=== PATIENT | female | born 1945 | race Caucasian/White ===

== ENCOUNTER → 2016-12-19 | Outpatient (CLI) | payer MEDICARE ==
[2016-12-19 09:00] LABS: Blood Urea Nitrogen 15 mg/dL (7-17); Non-African American GFR(MDRD) >60 (>60 ml/min/1.73 sqM)
--- NOTE | 2016-12-19 10:42 | CT ---
EXAMINATION TYPE: CT abdomen pelvis w con DATE OF EXAM: 12/19/2016 10:32 AM HISTORY: Constipation CT DLP: 412.80mGycm Automated Exposure Control for Dose Reduction was Utilized. CONTRAST: CT scan of the abdomen and pelvis is performed with IV Contrast, patient injected with 100 ml mL of O mnipaque 300. COMPARISON: CT abdomen and pelvis November 30, 2014 FINDINGS: LUNG BASES: There is 7 mm pleural based nodular opacity anterior medially right middle lobe on axial image 1 not clearly seen on [address], consider follow-up. LIVER/GB: No significant abnormality is appreciated. PANCREAS: No significant abnormality is seen. SPLEEN: No significant abnormality is seen. ADRENALS: Stable thickening to left adrenal gland may reflect hyperplasia. KIDNEYS: Bladder is distended extending into the lower abdomen. A few scattered pelvic phleboliths ar e seen. BOWEL: Evaluation bowel is slightly suboptimal as there is incomplete opacification of proximal small bowel loops and oral contrast only reaches distal transverse colon level. There is no suspicious sma ll or large bowel dilatation seen. There is some prominence of fecal material in the right, transvers e, and left colon. There is less fecal prominence in the sigmoid colon and rectum. UTERUS/ADNEXA: No gross abnormality seen. LYMPH NODES: No greater than 1cm abdominal or pelvic lymph nodes are appreciated. OSSEOUS STRUCTURES: There is grade 1 anterolisthesis of L3 on L4. There is moderate to advanced disc space narrowing with vacuum disc phenomenon and spurring at L4-L5 and L5-S1 levels. There is multilev el facet arthropathy in the lower lumbar spine. OTHER: There is mild to moderate calcified atherotic change of aorta and branch vessels. IMPRESSION: 1. Overall nonobstructive bowel gas pattern. Fairly moderate diffuse colonic fecal stasis is confirme d, correlates with history of constipation. 2. Suspicious 7 mm pleural-based nodular opacity only partially imaged on axial image 1, advise follo w-up chest CT to further evaluate this area and assess for possible additional pulmonary nodules.
== END | disposition home or self-care (01) ==
LOC: RADCTMAIN 08:05
PROVIDERS: ATTEND Family Medicine
DX: K59.00 Constipation, unspecified (principal)
CPT/HCPCS: 82565; 84520; 74177; 36415; Q9967

== ENCOUNTER → 2016-12-25 | Outpatient (CLI) | payer MEDICARE ==
[2016-12-25 08:23] LABS: Basophils % (A) 1 %; CH 30.9; CHCM 33.5; Eosinophils % (A) 1 %; HDW 2.49; HGB 14.3 gm/dL (11.4-16.0); Luc # (Auto) 0.13; Luc % (Auto) 3; Lymphocytes % (A) 24 %; MCHC 32.4 g/dL (31.0-37.0); MCV 92.6 fL (80.0-100.0); Mean Platelet Volume 6.9; Monocytes # (A) 0.2 k/uL (0-1.0); Monocytes % (A) 6 %; Neutrophils # (A) 2.7 k/uL (1.3-7.7); Neutrophils % (A) 65 %; RBC 4.75 m/uL (3.80-5.40); RDW 12.6 % (11.5-15.5); WBC 4.1 k/uL (3.8-10.6); WBC (Perox) 4.15
[2016-12-25 10:51] LABS: Erythrocyte Sedimentation Rate 14 mm/hr (0-20)
[2016-12-25 15:36] LABS: ALT 24 U/L (9-52); AST 27 U/L (14-36); Alkaline Phosphatase 61 U/L (38-126); Anion Gap 10 mmol/L; Blood Urea Nitrogen 17 mg/dL (7-17); C Reactive Protein <5.0 mg/L (<10.0); Calcium 9.3 mg/dL (8.4-10.2); Carbon Dioxide 29 mmol/L (22-30); Chloride 104 mmol/L (98-107); Cholesterol 211 mg/dL (<200); Glucose 97 mg/dL (74-99); HDL Cholesterol 69 mg/dL (40-60); Non-African American GFR(MDRD) >60 (>60 ml/min/1.73 sqM); Potassium 4.4 mmol/L (3.5-5.1); Sodium 143 mmol/L (137-145); Total Bilirubin 0.6 mg/dL (0.2-1.3); Total Protein 7.8 g/dL (6.3-8.2); Triglycerides 90 mg/dL (<150)
[2016-12-25 20:03] LABS: Magnesium 2.1 mg/dL (1.6-2.3)
== END | disposition home or self-care (01) ==
LOC: LABWHC1 07:39
PROVIDERS: ATTEND Family Medicine
DX: I10 Essential (primary) hypertension (principal); M31.6 Other giant cell arteritis; E78.5 Hyperlipidemia, unspecified
CPT/HCPCS: 36415; 80053; 80061; 83735; 84443; 85025; 85652; 86140

== ENCOUNTER → 2016-12-26 | Outpatient (CLI) | payer MEDICARE ==
--- NOTE | 2016-12-26 08:08 | CT ---
EXAMINATION TYPE: CT chest w con DATE OF EXAM: 12/26/2016 7:39 AM COMPARISON: 06/05/2006, 12/19/2016 HISTORY: Patient has no complaints at time of study. Follow up study for recently found lung nodule. CT DLP: 476 mGycm Automated exposure control for dose reduction was used. CONTRAST: CT scan of the chest is performed with IV Contrast, patient injected with 100 mL of Omnipaque 300. FINDINGS: LUNGS: Apical pleural-based thickening noted. Subpleural nodularity measuring 5 mm noted bilaterally. Nodular density seen by recent CT scan within the right middle lobe appears to correspond to areas o f subsegmental consolidation and scar or atelectasis. No spiculated masses. No pleural effusion, pneumothorax or focal pneumonia. MEDIASTINUM: There are no greater than 1 cm hilar or mediastinal lymph nodes. No pericardial effusi on is seen. OTHER: Hypertrophic change of the spine. IMPRESSION: 1. Area of abnormality seen within the right middle lobe most typical of postinflammatory change. Six -month follow-up recommended for confirmation. 2. There are numerous subpleural less than 5 mm pulmonary nodules too small to characterize but likel y postinflammatory. Six-month follow-up recommended to confirm stability.
== END ==
LOC: RADCTMAIN 07:13
PROVIDERS: ATTEND Family Medicine
DX: R91.1 Solitary pulmonary nodule (principal)
CPT/HCPCS: 71260; Q9967

== ENCOUNTER → 2017-01-06 | Outpatient (CLI) | payer MEDICARE ==
--- NOTE | 2017-01-07 08:43 | MM ---
Reason for exam: screening (asymptomatic). Last mammogram was performed 1 year ago. History: Patient is postmenopausal and has history of other cancer at age 33. Physical Findings: A clinical breast exam by your physician is recommended on an annual basis and results should be correlated with mammographic findings. MG 3D Screening Mammo W/Cad Bilateral CC and MLO view(s) were taken. Prior study comparison: December 26, 2015, bilateral MG 3d screening mammo w/cad. December 15, 2014, left breast MG work up mamm w CAD LT. December 06, 2014, bilateral MG screening mammo w CAD. There are scattered fibroglandular densities. Finding: There are typically benign round, grouped/clustered calcifications in the right breast. There is no discrete abnormality. ASSESSMENT: Benign, BI-RAD 2 RECOMMENDATION: Routine screening mammogram of both breasts in 1 year.
== END | disposition home or self-care (01) ==
LOC: RADMAMWWP 10:04
PROVIDERS: ATTEND Family Medicine
DX: Z12.31 Encounter for screening mammogram for malignant neoplasm of breast (principal)
CPT/HCPCS: 77063; G0202

== ENCOUNTER → 2017-02-20 | Outpatient (CLI) | payer MEDICARE ==
--- NOTE | 2017-02-20 20:35 | BD ---
EXAMINATION TYPE: MG DEXA axial skeleton. DATE OF EXAM: 02/20/2017 8:55 AM COMPARISON: NONE CLINICAL HISTORY: 71-year-old female screening for osteoporosis Height: 63 Weight: 129.2 FRAX RISK QUESTIONS: Alcohol (3 or more units per day): NO Family History (Parent hip fracture): NO Glucocorticoids (More than 3mos): NO (Ex: prednisone, prednisolone, methylprednisolone, dexamethasone, and hydrocortisone). History of Fracture in Adulthood: NO Secondary Osteoporosis: 1. Type 1 Diabetes: NO 2. Hyperthyroidism: NO 3. Menopause before 45: NO 4. Malnutrition: NO 5. Chronic liver disease: NO Rheumatoid Arthritis: NO Current Tobacco Use: NO RISK FACTORS HISTORY OF: Hip Fracture (Right/Left): NO Spine Fracture: NO History of Wrist Fracture: NO Surgery to Spine/Hip(right/left)/Wrist (right/left): NO Family History of Osteoporosis: NO Active: YES Diet low in dairy products/other sources of calcium: YES Postmenopausal woman: AGE 52 Lost more than 2 inches in height since high school: NO Frequent falls: NO Poor Health: NO Adrenal Insufficiency: NO MEDICATIONS: COZAAR, PRAVASTATIN, COLACE EXAM MEASUREMENTS: Bone mineral densitometry was performed using the Mam[employer] Shkola System. Bone mineral density as measured about the Lumbar spine is: ----- L1-L4(G/cm2): 1.343 T Score Values are as follows: ----- L2: 1.0 ----- L3: 1.5 ----- L4: 2.3 ----- L1-L4: 1.4 Bone mineral density has: INCREASED 0.2 % since study of: 10.13.2012 Bone mineral density about the R hip (g/cm2): 0.838 Bone mineral density about the L hip (g/cm2): 0.798 T Score values are as follows: -----R Neck: -1.4 -----L Neck: -1.7 -----R Intertrochanter: -1.8 -----L Intertrochanter: -2.0 Bone mineral density has: DECREASED -2.8 % since study of: 10.13.2012 IMPRESSION: Osteopenia (T Score between -2.5 and -1) as noted by T score values in the hips. There is slightly increased risk of fracture and the patient may be considered for treatment. Re-Screen 2-5 years. NOTE: T-SCORE=SD OF THE YOUNG ADULT MEAN.
== END | disposition home or self-care (01) ==
LOC: RADBDWWP 08:54
PROVIDERS: ATTEND Family Medicine
DX: Z13.820 Encounter for screening for osteoporosis (principal); M85.88 Other specified disorders of bone density and structure, other site
CPT/HCPCS: 77080

== ENCOUNTER → 2017-08-18 | Outpatient (CLI) | payer MEDICARE ==
[2017-08-18 11:57] LABS: Blood Urea Nitrogen 15 mg/dL (7-17); Non-African American GFR(MDRD) >60 (>60 ml/min/1.73 sqM)
--- NOTE | 2017-08-18 13:26 | CT ---
EXAMINATION TYPE: CT chest w con DATE OF EXAM: 08/18/2017 COMPARISON: Chest CT February 25, [address] June 05, 2006 HISTORY: Follow up to solitary lung nodule CT DLP: 147.2 mGycm. Automated Exposure Control for Dose Reduction was Utilized. TECHNIQUE: CT scan of the thorax is performed following with IV Contrast, patient injected with 100 mL of Omnipaque 300. FINDINGS: LUNGS: There is background mild apical scarring bilaterally redemonstrated. There is additional linea r scarring medially in the right middle lobe redemonstrated. No suspicious new greater than 5 mm pare nchymal nodule or mass is present bilaterally. No pleural effusion or pneumothorax is seen bilaterall y. Tracheobronchial tree is patent. MEDIASTINUM: There are no greater than 1 cm hilar or mediastinal lymph nodes. No pericardial effusi on is seen. OTHER: Some multilevel spurring in thoracic spine is redemonstrated. IMPRESSION: Mild scarring redemonstrated bilaterally. No suspicious new greater than 5 mm nodule. No acute pulmonary process is evident.
== END | disposition home or self-care (01) ==
LOC: RADCTMAIN 11:17
PROVIDERS: ATTEND Family Medicine
DX: J98.4 Other disorders of lung (principal)
CPT/HCPCS: 82565; 84520; 71260; 36415; Q9967

== ENCOUNTER → 2017-10-31 | Outpatient (CLI) | payer MEDICARE ==
--- NOTE | 2017-10-31 12:04 | XR ---
EXAMINATION TYPE: XR chest 2V DATE OF EXAM: 10/31/2017 COMPARISON: 01/03/2012 HISTORY: Shortness of breath TECHNIQUE: Frontal and lateral views of the chest are obtained. FINDINGS: Scattered senescent parenchymal changes noted. Hyperinflation compatible with COPD. No evidence for infiltrate. No evidence for atelectasis. Heart size is stable. Mediastinal structures are stable and grossly unremarkable. No evidence for hilar prominence. Degenerative changes dorsal spine. IMPRESSION: 1. No evidence for acute pulmonary disease.
== END | disposition home or self-care (01) ==
LOC: RADXRMAIN 11:48
PROVIDERS: ATTEND Family Medicine
DX: R05 Cough (principal)
CPT/HCPCS: 71046

== ENCOUNTER → 2017-12-29 | Outpatient (CLI) | payer MEDICARE ==
[2017-12-29 09:55] LABS: Blood Urea Nitrogen 17 mg/dL (7-17)
== END | disposition home or self-care (01) ==
LOC: LABWHC1 09:05
PROVIDERS: ATTEND Internal Medicine Critical Care Medicine
DX: Z01.812 Encounter for preprocedural laboratory examination (principal); I10 Essential (primary) hypertension; J96.01 Acute respiratory failure with hypoxia
CPT/HCPCS: 36415; 82565; 84520

== ENCOUNTER → 2017-12-31 | Outpatient (CLI) | payer MEDICARE ==
--- NOTE | 2017-12-31 08:36 | CT ---
EXAMINATION TYPE: CT chest w con DATE OF EXAM: 12/31/2017 COMPARISON: 08/18/2017, 01/15/2010, 11/20/2017 HISTORY: 72 year-old female acute respiratory failure with hypoxia, SOB and cough TECHNIQUE: Contiguous axial scanning of the chest after the administration of 100 mL of Omnipaque 300 . Coronal/sagittal reconstructions performed. CT DLP: 501mGycm. Automatic exposure control utilized for a dose reduction. FINDINGS: The heart is normal size without pericardial effusion. Mild coronary vessel calcifications are presen t. Aortic and mitral valvular calcifications. Aorta is normal caliber with conventional arch vessel branching anatomy. Minimal atherosclerotic arch calcifications. Previous mediastinal and right hilar lymph node seen on 11/20/2017 have decreased in size as has the b ilateral infrahilar peribronchial thickening which also likely represented reactive lymph nodes. No t horacic lymphadenopathy by CT size criteria. Evaluation of the lungs shows mild centrilobular emphysema with biapical pleural-parenchymal scarring . Improvement in the previously seen bilateral groundglass/mosaic attenuation on the CT of 11/20/2017. -Some focal 5 mm nodular density anterior right middle lobe remains unchanged from 08/18/2017 likely an area of scarring as it is smaller from 01/15/2010. -Calcified granuloma posterior left base, axial image 61. -4 mm subpleural pulmonary nodule peripheral left base axial image 52 is unchanged from 08/18/2017, n ew from 2009. Some additional strandy and interstitial densities basilar right middle lobe showing incomplete resol ution from 11/20/2017 and are noted to be new from 08/18/2017. No new consolidation or pleural effusion. Visualized upper abdomen shows no gross abnormality. Bones: No osseous destructive process. IMPRESSION: 1. COPD with mild emphysema. 2. The previously seen borderline sized mediastinal and hilar lymph nodes on 11/20/2017 have improved. 3. Residual patchy interstitial densities remain at the basilar right middle lobe and could represent residual pneumonitis or postinflammatory scarring. This is improved from 11/20/2017 and new from 07/28. 4. A 4 mm left basilar pulmonary nodule is stable for 4 to 5 months. Consider a one-year follow-up to reassess.
== END | disposition home or self-care (01) ==
LOC: RADCTMAIN 07:00
PROVIDERS: ATTEND Internal Medicine Critical Care Medicine
DX: J43.9 Emphysema, unspecified (principal); R91.1 Solitary pulmonary nodule; R91.8 Other nonspecific abnormal finding of lung field
CPT/HCPCS: 71260; Q9967

== ENCOUNTER → 2018-01-05 | Outpatient (CLI) | payer MEDICARE ==
[2018-01-05 16:32] LABS: Blood Urea Nitrogen 18 mg/dL (7-17)
--- NOTE | 2018-01-05 18:02 | CT ---
EXAMINATION TYPE: CT abdomen pelvis w con DATE OF EXAM: 01/05/2018 COMPARISON: 12/19/2016 HISTORY: Left sided abdominal ache on and off x years. CT DLP: 1074 mGycm Automated exposure control for dose reduction was used. TECHNIQUE: Helical acquisition of images was performed from the lung bases through the pelvis. CONTRAST: Performed with Oral Contrast and with IV Contrast, patient injected with 100 mL of Omnipaque 300. FINDINGS: There is a groundglass interstitial density in the visualized lower lung galeano. There is no pleural effusion. There is no pericardial effusion. Liver shows no focal defect. Spleen appears normal. Bile ducts are not dilated. Pancreas appears norm al. Gallbladder appears normal. There is no adrenal mass. Kidneys show satisfactory contrast opacification. There is a 6 mm calculus in the lower pole right kidney. There is no hydronephrosis. Ureters are not dilated. There is no retr operitoneal adenopathy. Abdominal aorta is atheromatous. I see no intestinal wall thickening. There are no dilated loops. Bladder distends smoothly. Uterus is anteverted. There are spondylotic changes in the lumbar spine. There is a degenerative first-degree L3-4 spondylolisthesis. There is narrowing at L4-5 L5-S1 disc spaces. Urinary bladder distends at the floor of the pelvis. IMPRESSION: THERE IS NEW GROUNDGLASS DIFFUSE INTERSTITIAL INFILTRATE IN THE LOWER LUNG GALEANO COMPARED TO OLD EXA M. THIS COULD RELATE TO INTERSTITIAL PULMONARY FIBROSIS. CYSTOCELE IN THE URINARY BLADDER. NONOBSTRUCTING RIGHT RENAL CALCULUS. CYSTOCELE APPEARS TO BE NEW CO MPARED TO OLD EXAM.
== END | disposition home or self-care (01) ==
LOC: RADCTMAIN 15:59
PROVIDERS: ATTEND Internal Medicine Critical Care Medicine
DX: N20.0 Calculus of kidney (principal); N81.10 Cystocele, unspecified; J96.01 Acute respiratory failure with hypoxia
CPT/HCPCS: 82565; 84520; 74177; 36415; Q9967

== ENCOUNTER → 2018-02-04 | Outpatient (CLI) | payer MEDICARE ==
--- NOTE | 2018-02-05 09:55 | MM ---
Reason for exam: screening (asymptomatic). Last mammogram was performed 1 year and 1 month ago. History: Patient is postmenopausal and has history of other cancer at age 33. Physical Findings: A clinical breast exam by your physician is recommended on an annual basis and results should be correlated with mammographic findings. MG 3D Screening Mammo W/Cad Bilateral CC and MLO view(s) were taken. Prior study comparison: January 06, 2017, bilateral MG 3d screening mammo w/cad. December 26, 2015, bilateral MG 3d screening mammo w/cad. There are scattered fibroglandular densities. Finding: There are typically benign round calcifications in both breasts. There is no discrete abnormality. ASSESSMENT: Negative, BI-RAD 1 RECOMMENDATION: Routine screening mammogram of both breasts in 1 year.
== END | disposition home or self-care (01) ==
LOC: RADMAMWWP 07:58
PROVIDERS: ATTEND Family Medicine
DX: Z12.31 Encounter for screening mammogram for malignant neoplasm of breast (principal)
CPT/HCPCS: 77063; 77067

== ENCOUNTER → 2018-04-08 | Outpatient (CLI) | payer MEDICARE ==
[2018-04-08 10:49] LABS: Cholesterol 234 mg/dL (<200); HDL Cholesterol 74 mg/dL (40-60); LDL Cholesterol,Calculated 137 mg/dL (0-99); Triglycerides 117 mg/dL (<150)
[2018-04-08 17:34] LABS: Hepatitis C IgG Antibody Non-Reactive (Non-Reactive)
[2018-04-08 17:51] LABS: Rheumatoid Factor 440 IU/mL (0-15)
== END | disposition home or self-care (01) ==
LOC: LABWHC1 10:17
PROVIDERS: ATTEND Family Medicine
DX: E78.5 Hyperlipidemia, unspecified (principal); M05.9 Rheumatoid arthritis with rheumatoid factor, unspecified; Z11.59 Encounter for screening for other viral diseases
CPT/HCPCS: 36415; 80061; 86431; 86803

== ENCOUNTER → 2018-07-10 | Outpatient (CLI) | payer MEDICARE ==
[2018-07-10 10:37] LABS: ALT 29 U/L (9-52); AST 32 U/L (14-36); Albumin 4.6 g/dL (3.5-5.0); Alkaline Phosphatase 64 U/L (38-126); Anion Gap 10 mmol/L; Blood Urea Nitrogen 18 mg/dL (7-17); Calcium 9.5 mg/dL (8.4-10.2); Carbon Dioxide 27 mmol/L (22-30); Chloride 103 mmol/L (98-107); Cholesterol 235 mg/dL (<200); Glucose 95 mg/dL (74-99); HDL Cholesterol 84 mg/dL (40-60); LDL Cholesterol,Calculated 129 mg/dL (0-99); Potassium 4.3 mmol/L (3.5-5.1); Sodium 140 mmol/L (137-145); Total Bilirubin 0.6 mg/dL (0.2-1.3); Total Protein 8.2 g/dL (6.3-8.2); Triglycerides 109 mg/dL (<150)
== END ==
LOC: LABWHC1 09:34
PROVIDERS: ATTEND Internal Medicine Clinical Cardiac Electrophysiology
DX: E78.5 Hyperlipidemia, unspecified (principal); I10 Essential (primary) hypertension; I47.1 Supraventricular tachycardia
CPT/HCPCS: 36415; 80053; 80061; 84443

== ENCOUNTER → 2019-04-01 | Outpatient (CLI) | payer MEDICARE ==
[2019-04-01 08:34] LABS: Basophils # (A) 0.1 k/uL (0-0.2); Basophils % (A) 1 %; Eosinophils # (A) 0.1 k/uL (0-0.7); Eosinophils % (A) 2 %; HCT 45.1 % (34.0-46.0); HGB 14.6 gm/dL (11.4-16.0); Lymphocytes # (A) 1.2 k/uL (1.0-4.8); Lymphocytes % (A) 28 %; MCH 29.3 pg (25.0-35.0); MCHC 32.4 g/dL (31.0-37.0); MCV 90.6 fL (80.0-100.0); Mean Platelet Volume 7.2; Monocytes # (A) 0.3 k/uL (0-1.0); Monocytes % (A) 7 %; Neutrophils # (A) 2.6 k/uL (1.3-7.7); Neutrophils % (A) 59 %; Platelet Count 302 k/uL (150-450); RBC 4.98 m/uL (3.80-5.40); RDW 13.5 % (11.5-15.5); WBC 4.4 k/uL (3.8-10.6)
[2019-04-01 17:09] LABS: Albumin 4.5 g/dL (3.80-4.90); Albumin/Globulin Ratio 2.05 (1.60-3.17); Anion Gap 7.7 mmol/L (4.00-12.00); Calcium 9.4 mg/dL (8.7-10.3); Carbon Dioxide 28.3 mmol/L (21.6-31.8); Globulin 2.2 g/dL (1.6-3.3); LDL Cholesterol,Calculated 121.6 mg/dL (0.0-131.0); Potassium 4.7 mmol/L (3.5-5.5); Total Bilirubin 0.6 mg/dL (0.3-1.2); Total Protein 6.7 g/dL (6.2-8.2); VLDL Calculation 14.4 mg/dL (5.00-40.00)
== END | disposition home or self-care (01) ==
LOC: LABWHC1 07:54
PROVIDERS: ATTEND Family Medicine
DX: E78.5 Hyperlipidemia, unspecified (principal)
CPT/HCPCS: 36415; 80053; 80061; 84443; 85025

== ENCOUNTER → 2019-04-22 | Outpatient (CLI) | payer MEDICARE ==
--- NOTE | 2019-04-26 09:18 | MM ---
Reason for exam: screening (asymptomatic). Last mammogram was performed 1 year and 3 months ago. History: Patient is postmenopausal and has history of other cancer at age 33. Physical Findings: A clinical breast exam by your physician is recommended on an annual basis and results should be correlated with mammographic findings. MG 3D Screening Mammo W/Cad Bilateral CC and MLO view(s) were taken. Prior study comparison: February 04, 2018, bilateral MG 3d screening mammo w/cad. January 06, 2017, bilateral MG 3d screening mammo w/cad. There are scattered fibroglandular densities. No significant changes when compared with prior studies. ASSESSMENT: Negative, BI-RAD 1 RECOMMENDATION: Routine screening mammogram of both breasts in 1 year.
== END | disposition home or self-care (01) ==
LOC: RADMAMWWP 09:30
PROVIDERS: ATTEND Family Medicine
DX: Z12.31 Encounter for screening mammogram for malignant neoplasm of breast (principal)
CPT/HCPCS: 77063; 77067

== ENCOUNTER → 2019-09-02 | Outpatient (CLI) | payer MEDICARE ==
--- NOTE | 2019-09-02 12:02 | XR ---
EXAMINATION TYPE: XR cervical spine limited DATE OF EXAM: 09/02/2019 TECHNIQUE: Frontal, lateral, and open mouth view of the cervical spine are obtained. 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 There is grade 1 anterolisthesis of C 4 on C5 and C3 on C4 with retrolisthesis of C5 on C6 and C6 on C7. Grade 1 anterolisthesis is also se en of C7 on T1. No prevertebral soft tissue swelling. Malalignment is likely on a degenerative basis. There is straightening of usual cervical lordosis. Intervertebral disc space narrowing, anterior ost eophytes, uncovertebral hypertrophy and facet arthropathy are seen at multiple levels of the cervical spine, overall moderate to severe degenerative disc disease. IMPRESSION: No acute fracture or vertebral body height loss of the cervical spine. Multilevel malalig nment is likely on the basis of degenerative disc disease as there is overall moderate to severe dege nerative disease of the cervical spine.
== END | disposition home or self-care (01) ==
LOC: RADXRMAIN 10:18
PROVIDERS: ATTEND Otolaryngology
DX: M50.30 Other cervical disc degeneration, unspecified cervical region (principal); M43.02 Spondylolysis, cervical region
CPT/HCPCS: 72040

== ENCOUNTER → 2019-09-13 | Outpatient (CLI) | payer MEDICARE ==
--- NOTE | 2019-09-14 02:05 | MR ---
EXAMINATION TYPE: MR tmj wo con DATE OF EXAM: 09/13/2019 COMPARISON: None HISTORY: Rt ear pain, jaw clicking Standard multiplanar, multisequence MRI departmental protocol Multiplanar, multisequence images of the temporomandibular joints were acquired FINDINGS: Open and closed mouth views were obtained. The temporomandibular joint menisci appear antelmo l. There is normal position in the closed mouth view. On the open-mouth view of the menisci appear in normal position. Temporomandibular joint spaces are fairly normal. I see no focal bone destruction. There is no sign of a soft tissue mass. IMPRESSION: Normal temporomandibular joint exam. No evidence of meniscal tear.
== END ==
LOC: RADMRIMAIN 15:24
PROVIDERS: ATTEND Otolaryngology
DX: H92.01 Otalgia, right ear (principal); M26.601 Right temporomandibular joint disorder, unspecified
CPT/HCPCS: 70336

== ENCOUNTER → 2019-12-28 | Outpatient (CLI) | payer MEDICARE ==
[2019-12-28 13:31] LABS: African American GFR (CKD) 85.4 (60.0-200.0); Albumin 4.4 g/dL (3.80-4.90); Albumin/Globulin Ratio 1.91 (1.60-3.17); Anion Gap 8.4 mmol/L (4.00-12.00); BUN/Creat Ratio 13.75 Ratio (12.00-20.00); C Reactive Protein 5.5 mg/dL (0.0-0.8); Calcium 9.1 mg/dL (8.7-10.3); Carbon Dioxide 26.6 mmol/L (21.6-31.8); Chol/HDL Ratio 2.66; Globulin 2.3 g/dL (1.6-3.3); Non-African American GFR(CKD) 73.7 (60.0-200.0); Total Bilirubin 0.5 mg/dL (0.3-1.2); Total Protein 6.7 g/dL (6.2-8.2)
[2019-12-29 19:20] LABS: Hemoglobin A1C 5.8 % (4.0-6.0)
== END | disposition home or self-care (01) ==
LOC: LABWHC1 07:13
PROVIDERS: ATTEND Nurse Practitioner Adult Health
DX: E78.5 Hyperlipidemia, unspecified (principal); M31.6 Other giant cell arteritis
CPT/HCPCS: 36415; 80053; 80061; 83036; 85652; 86140

== ENCOUNTER → 2019-12-31 | Outpatient (CLI) | payer MEDICARE | END | disposition home or self-care (01) | LOC: LABWHC1 13:10 | PROVIDERS: ATTEND Family Medicine | DX: R79.82 Elevated C-reactive protein (CRP) (principal) | CPT/HCPCS: 36415; 85652; 86140 ==

== ENCOUNTER → 2020-05-01 | Outpatient (CLI) | payer MEDICARE ==
[2020-05-01 08:01] LABS: Basophils % (A) 1 %; Eosinophils # (A) 0.1 k/uL (0-0.7); Eosinophils % (A) 2 %; HCT 41.9 % (34.0-46.0); HGB 14.1 gm/dL (11.4-16.0); Lymphocytes # (A) 1.1 k/uL (1.0-4.8); Lymphocytes % (A) 26 %; MCH 31.4 pg (25.0-35.0); MCHC 33.7 g/dL (31.0-37.0); MCV 93.2 fL (80.0-100.0); Mean Platelet Volume 7.2; Monocytes # (A) 0.2 k/uL (0-1.0); Monocytes % (A) 6 %; Neutrophils # (A) 2.5 k/uL (1.3-7.7); Neutrophils % (A) 61 %; Platelet Count 247 k/uL (150-450); RDW 12.4 % (11.5-15.5); WBC 4.1 k/uL (3.8-10.6)
[2020-05-01 12:46] LABS: Erythrocyte Sedimentation Rate 10 mm/Hr (0-30)
[2020-05-01 13:00] LABS: African American GFR (CKD) 85.4 (60.0-200.0); Albumin 4.4 g/dL (3.80-4.90); Albumin/Globulin Ratio 1.83 (1.60-3.17); Anion Gap 7.4 mmol/L (4.00-12.00); BUN/Creat Ratio 18.75 Ratio (12.00-20.00); Calcium 8.9 mg/dL (8.7-10.3); Carbon Dioxide 26.6 mmol/L (21.6-31.8); Chol/HDL Ratio 2.49; Globulin 2.4 g/dL (1.6-3.3); LDL Cholesterol,Calculated 88.2 mg/dL (0.0-131.0); Non-African American GFR(CKD) 73.7 (60.0-200.0); Potassium 4.1 mmol/L (3.5-5.5); Total Bilirubin 0.7 mg/dL (0.2-1.2); Total Protein 6.8 g/dL (6.2-8.2); VLDL Calculation 18.8 mg/dL (5.00-40.00)
== END | disposition home or self-care (01) ==
LOC: LABWHC1 07:04
PROVIDERS: ATTEND Family Medicine
DX: Z03.818 Encounter for observation for suspected exposure to other biological agents ruled out (principal); I95.1 Orthostatic hypotension; R20.2 Paresthesia of skin; E78.5 Hyperlipidemia, unspecified; M05.9 Rheumatoid arthritis with rheumatoid factor, unspecified
CPT/HCPCS: 36415; 80053; 80061; 82306; 82607; 84443; 85025; 85652; 86140; 86769

== ENCOUNTER 2020-07-11 07:48 | Day surgery (SDC) | payer MEDICARE ==
[2020-07-07 08:43] VITALS: BMI 23.2
[2020-07-11] MEDS ORDERED: SODIUM CHLORIDE 0.9% 500 ML 500 ML IV ONE (08:22)
[2020-07-11 08:32] VITALS: RESP 16; TEMP 98.2
[2020-07-11] MEDS: BENZOCAINE SPRAY 1 CAN TOPICAL ONE ×2 (08:47→09:12)
[2020-07-11] MEDS ORDERED: fentaNYL (PF) 50 MCG/ML 2 ML AMP IV ONE (09:15)
[2020-07-11] MEDS ORDERED: MIDAZOLAM 2 MG/2 ML VIAL IV ONE (09:15)
[2020-07-11 10:31] VITALS: BP 142/67; PULSE 77
--- NOTE | 2020-07-11 10:34 | ECHOT ---
TRANSESOPHAGEAL ECHOCARDIOGRAM INDICATION: Aortic stenosis. PROCEDURE NOTE: After obtaining informed consent, transesophageal echocardiogram is performed in left lateral position using an Omni plane probe. Local and IV sedation were obtained with 2 mg of Versed and 25 mcg of fentanyl and Xylocaine spray. Patient tolerated the procedure well without any obvious immediate complication. Patient received moderate conscious sedation. Total sedation time was 13 minutes. FINDINGS: 1. AORTIC VALVE: The aortic valve aortic valve is a 3-leaflet valve. Heavily calcified with severe restriction in leaflet mobility. By planimetry, the aortic valve area is about 0.8 cm2. mitral valve shows mild chronic occlusion with mild central mitral regurgitation. 2. Tricuspid valve shows mild tricuspid regurgitation. Left atrium appears mildly enlarged. the left ventricle has normal size and systolic function. Next right ventricle has normal size and function. 3. Interatrial septum there is no evidence of [id number] shunt by color-flow Doppler or [id number] shunt by agitated saline contrast study. Aorta shows mild- to-moderate atherosclerotic changes and aortic root is not enlarged. CONCLUSION: Severe aortic stenosis involving a 3 leaflet aortic valve that is heavily calcified. PLAN: Patient will need a left heart catheterization and undergo aortic valve replacement. MMODL / IJN: [id number] /
--- NOTE | 2020-07-11 10:39 | LTR ---
DATE OF SERVICE: 07/11/2020 RE: Radha De Paz Dear Lupe; I performed transesophageal echo on Zandra Garcia. The detailed report is enclosed for your records. In brief, the procedure shows severe aortic stenosis involving a 3-leaflet valve and patient will undergo left heart catheterization and aortic valve replacement. Thank you for allowing me to participate in the care of this pleasant lady. Sincerely, MD BETY Paul / REYNOLD: [phone] /
[2020-07-11] MEDS ORDERED: SODIUM CHLORIDE 0.9% 1,000 ML IV SCH (12:45)
== END 2020-07-11 10:31 | disposition home or self-care (01) ==
LOC: CATHCVL 07:48
PROVIDERS: ATTEND Internal Medicine Cardiovascular Disease
DX: I08.3 Combined rheumatic disorders of mitral, aortic and tricuspid valves (principal); E78.5 Hyperlipidemia, unspecified; G72.0 Drug-induced myopathy; I71.4 Abdominal aortic aneurysm, without rupture; I49.3 Ventricular premature depolarization; E78.00 Pure hypercholesterolemia, unspecified; Z79.82 Long term (current) use of aspirin; Z79.899 Other long term (current) drug therapy
CPT/HCPCS: 93312; 93325; J2250; J3010

== ENCOUNTER → 2020-07-14 | Outpatient (CLI) | payer MEDICARE ==
[2020-07-14 12:45] LABS: HCT 42.2 % (34.0-46.0); HGB 13.8 gm/dL (11.4-16.0); MCH 30.2 pg (25.0-35.0); MCHC 32.8 g/dL (31.0-37.0); Platelet Count 306 k/uL (150-450); RBC 4.59 m/uL (3.80-5.40); RDW 12.1 % (11.5-15.5); WBC 5.3 k/uL (3.8-10.6)
[2020-07-14 12:54] LABS: African American GFR (CKD) >90 (>60 ml/min/1.73 sqM); Anion Gap 6 mmol/L; Blood Urea Nitrogen 10 mg/dL (7-17); Carbon Dioxide 31 mmol/L (22-30); Chloride 103 mmol/L (98-107); Non-African American GFR(CKD) 87 (>60 ml/min/1.73 sqM); Potassium 4.2 mmol/L (3.5-5.1); Sodium 140 mmol/L (137-145)
== END | disposition home or self-care (01) ==
LOC: LABWHC1 10:37
PROVIDERS: ATTEND Internal Medicine Cardiovascular Disease
DX: Z01.818 Encounter for other preprocedural examination (principal); I35.0 Nonrheumatic aortic (valve) stenosis
CPT/HCPCS: 36415; 80051; 82565; 84520; 85027

== ENCOUNTER → 2020-07-18 | Outpatient (CLI) | payer MEDICARE ==
--- NOTE | 2020-07-18 17:28 | BD ---
EXAMINATION TYPE: Axial Bone Density DATE OF EXAM: 07/18/2020 COMPARISON: 02/20/2017 CLINICAL HISTORY: Height: 62.5 IN Weight: 129 LBS RISK FACTORS HISTORY OF: Active: YES Postmenopausal woman: AGE 52 Take estrogen and/or progesterone medications: NOT NOW How long: TOOK FROM AGE AGE [age] MEDICATIONS: Osteoporosis Medications: NOT NOW Which medication: Fosamax How Long: TOOK FOR 1 YEAR MANY YEARS AGO Additional Medications: VIT D, COZAAR, PRAVASTATIN, LOW DOSE ASPIRIN, ZETIA, B COMPLEX EXAM MEASUREMENTS: Bone mineral densitometry was performed using the [employer] System. Bone mineral density as measured about the Lumbar spine is: ----- L1-L4(G/cm2): 1.382 T Score Values are as follows: ----- L2: 1.4 ----- L3: 2.0 ----- L4: 2.4 ----- L1-L4: 1.7 Bone mineral density has: Increased 3.0% since study of: 02/20/2017 Bone mineral density about the R hip (g/cm2): 0.825 Bone mineral density about the L hip (g/cm2): 0.781 T Score values are as follows: -----R Neck: -1.5 -----L Neck: -1.8 -----R Total: -1.3 -----L Total: -1.3 Bone mineral density has: Decreased -0.8% since study of: 02/20/2017 IMPRESSION: Osteopenia (T Score between -2.5 and -1). There is slightly increased risk of fracture and the patient may be considered for treatment. Re-Screen 2-5 years. NOTE: T-SCORE=SD OF THE YOUNG ADULT MEAN.
--- NOTE | 2020-07-19 10:16 | MM ---
Reason for exam: screening (asymptomatic). Last mammogram was performed 1 year and 3 months ago. History: Patient is postmenopausal and has history of other cancer at age 33. Physical Findings: A clinical breast exam by your physician is recommended on an annual basis and results should be correlated with mammographic findings. MG 3D Screening Mammo W/Cad Bilateral CC and MLO view(s) were taken. Prior study comparison: April 22, 2019, bilateral MG 3d screening mammo w/cad. February 04, 2018, bilateral MG 3d screening mammo w/cad. There are scattered fibroglandular densities. There is no discrete abnormality. No significant changes when compared with prior studies. ASSESSMENT: Negative, BI-RAD 1 RECOMMENDATION: Routine screening mammogram of both breasts in 1 year.
== END | disposition home or self-care (01) ==
LOC: RADMAMWWP 09:31
PROVIDERS: ATTEND Family Medicine
DX: Z12.31 Encounter for screening mammogram for malignant neoplasm of breast (principal); M85.80 Other specified disorders of bone density and structure, unspecified site
CPT/HCPCS: 77063; 77067; 77080

== ENCOUNTER → 2020-07-25 | Day surgery (SDC) | payer MEDICARE ==
[2020-07-21 10:52] VITALS: BMI 23.0
[~2020-07-25] MED LIST: ALPRAZolam 0.25 MG TAB PO PRN; ALPRAZolam 0.5 MG TAB PO PRN; ASPIRIN 325 MG TAB PO ONE; ATORVASTATIN 80 MG TAB PO ONE; IOPAMIDOL-370 125ML BTL INJ ONE; LIDOCAINE 1% INJ 10MG/ML (20 ML MDV) SQ ONE; MIDAZOLAM 2 MG/2 ML VIAL IVP ONE; NITROGLYCERIN SL TABS 0.4 MG TAB SUBLINGUAL PRN; RX INFO: IV CONTRAST WAS GIVEN 1 EACH MISC MISCELLANE PRN; SODIUM CHLORIDE 0.9% 1,000 ML IV ONE; SODIUM CHLORIDE 0.9% 1,000 ML IV SCH; SODIUM CHLORIDE 0.9% 1,000 ML in EMPTY BAG 1 BAG IV ONE; fentaNYL (PF) 50 MCG/ML 2 ML AMP IVP ONE
[2020-07-25 07:07] VITALS: TEMP 98.1
[2020-07-25 09:00] VITALS: RESP 16
--- NOTE | 2020-07-25 12:13 | CC ---
CARDIAC CATHETERIZATION REPORT PROCEDURE NOTE: INDICATION: Aortic stenosis. After obtaining informed consent, left heart catheterization, coronary angiogram and aortogram were performed via the right femoral artery using standard Gilma catheters. Patient tolerated the procedure well without any obvious immediate complications. A femoral angiogram was performed and Angio-Seal was deployed for hemostasis. Patient received moderate conscious sedation. Total sedation time was 17 minutes. FINDINGS: 1. HEMODYNAMICS: Hemodynamics central aortic pressure is 166/77 mm. 2. LEFT VENTRICULOGRAM: Left ventriculogram is not performed. 3. AORTOGRAM: Aortogram revealed dilated ascending aorta. 4. ANGIOGRAPHIC DATA: LEFT MAIN CORONARY ARTERY: Left main coronary artery appears calcified but is free of significant stenosis. Divides into left anterior descending coronary artery and circumflex coronary artery. LAD and its branches, circumflex coronary artery and its branches are free of significant stenosis. Right coronary artery is a large dominant vessel, shows a 45% stenosis in its midportion. CONCLUSION: 1. 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 2. Aneurysmal dilatation of the ascending aorta. 3. Severe aortic stenosis based on noninvasive studies. PLAN: Patient will be referred for TAVR. MMODL / IJN: [id number] /
--- NOTE | 2020-07-25 12:14 | LTR ---
DATE OF SERVICE: 07/25/2020 RE: Zandra Garcia Dear Lupe; I performed cardiac catheterization on Zandra Garcia, a detailed report is enclosed for your records. Zandra is a 75-year-old lady who has severe aortic stenosis documented and a transesophageal echo and is to undergo TAVR and going through cardiac catheterization to rule out significant obstructive CAD. She has mild coronary artery disease involving the right coronary artery and will be referred for aortic valve replacement. Thank you for giving me the privilege to participate in the care of this pleasant lady. Sincerely, MD BETY Paul / REYNOLD: [phone] /
[2020-07-25 13:03] VITALS: BP 152/84; PULSE 68
== END ==
LOC: CATHCVL 06:05
PROVIDERS: ATTEND Internal Medicine Cardiovascular Disease
DX: I35.0 Nonrheumatic aortic (valve) stenosis (principal); I25.10 Atherosclerotic heart disease of native coronary artery without angina pectoris; I71.2 Thoracic aortic aneurysm, without rupture; M31.6 Other giant cell arteritis; E78.5 Hyperlipidemia, unspecified; G72.0 Drug-induced myopathy; T49.0X5A Adverse effect of local antifungal, anti-infective and anti-inflammatory drugs, initial encounter; I11.9 Hypertensive heart disease without heart failure; M25.50 Pain in unspecified joint; I70.0 Atherosclerosis of aorta; I49.3 Ventricular premature depolarization; E78.00 Pure hypercholesterolemia, unspecified; I47.1 Supraventricular tachycardia; I71.4 Abdominal aortic aneurysm, without rupture; Z98.890 Other specified postprocedural states; Z79.82 Long term (current) use of aspirin; Z79.899 Other long term (current) drug therapy; Z88.8 Allergy status to other drugs, medicaments and biological substances
CPT/HCPCS: 93454; 93567; C1769 ×2; C1760; C1894; J2250; J2001; J3010; Q9967

== ENCOUNTER 2020-08-04 08:22 | Observation (INO) | payer MEDICARE ==
[2020-08-04] MEDS ORDERED: SODIUM CHLORIDE 0.9% 1,000 ML IV SCH (10:00)
[2020-08-04] MEDS ORDERED: ALPRAZolam 0.25 MG TAB PO STA (10:30)
--- NOTE | 2020-08-04 10:49 | P.HPCAR ---
History of Present Illness H&P Date: 08/04/20 This is a pleasant 75-year-old female patient who has a known history of giant cell arteritis, valvular heart disease, mildly enlarged abdominal aorta, hyperlipidemia with statin myopathy, LDH, denies any prior history of smoking. She underwent a cardiac catheterization by Dr. Stover on July 25 which revealed mild nonobstructive disease involving the RCA, aneurysmal dilated dictation of the ascending aorta and severe aortic stenosis based on noninvasive study. Patient was found on an outpatient basis to have evidence of a right groin no aneurysm and is scheduled today to undergo thrombin injection of the right femoral artery by Dr. Jacome. Her blood pressure this morning 145/75, heart rate in the 80s, 97% on room air she is afebrile. No lab data yet available, patient did have a CBC and a BMP drawn. Physical Exam Vitals: Vital Signs Temp Pulse Resp BP Pulse Ox 08/04/20 08:54 98.3 F 84 16 145/75 97 Intake and Output 08/03/20 08/04/20 08/04/20 22:59 06:59 14:59 Other: # Voids 1 Weight 59.4 kg PHYSICAL EXAMINATION: GENERAL: 75-year-old female in no acute distress at the time of my examination HEENT: Head is atraumatic, normocephalic. Pupils equal, round. Sclera anicteric. Conjunctiva are clear. Mucous membranes of the mouth are moist. Neck is supple. There is no elevated jugular venous pressure. No carotid bruit is heard. HEART EXAMINATION: Heart S1 S2 1 systolic murmur is heard CHEST EXAMINATION: Lungs are clear to auscultation and precussion. No chest wall tenderness is noted on palpation or with deep breathing. ABDOMEN: Soft, nontender. Bowel sounds are heard. No organomegaly noted. EXTREMITIES: 2+ peripheral pulses with no evidence of peripheral edema and no calf tenderness noted. Right groin ecchymotic, from the groin area down to the mid thigh, positive audible bruit NEUROLOGIC patient is awake, alert and oriented 3 . Past Medical History Past Medical History: Cancer, Hyperlipidemia, Hypertension, Osteoarthritis (OA) Additional Past Medical History / Comment(s): melanoma , basal cell carcinoma that was resected from the nose in 1985, giant cell arteritis History of Any Multi-Drug Resistant Organisms: None Reported Past Surgical History: Tonsillectomy, Tubal Ligation Additional Past Surgical History / Comment(s): SKIN CANCER SURGERY X 4. COLONOSCOPY. TEMPORAL artery BIOPSY , melenoma removed - surgery on neck Past Anesthesia/Blood Transfusion Reactions: No Reported Reaction Past Psychological History: No Psychological Hx Reported Smoking Status: Never smoker Past Alcohol Use History: Occasional Past Drug Use History: None Reported - Past Family History Mother Family Medical History: Cancer Son(s) Family Medical History: Cancer Additional Family Medical History / Comment(s): parathyroid cancer Physical Examination Vital Signs Temp Pulse Resp BP Pulse Ox 08/04/20 08:54 98.3 F 84 16 145/75 97 Intake and Output 08/03/20 08/04/20 08/04/20 22:59 06:59 14:59 Other: # Voids 1 Weight 59.4 kg Results 08/04/20 10:35 Current Medications Generic Name Dose Route Start Last Admin Trade Name Freq PRN Reason Stop Dose Admin Aspirin 81 mg 08/04/20 21:00 Aspirin 81 Mg PO HS JAQUELINE Cholecalciferol 1,000 unit 08/05/20 09:00 Cholecalciferol 1,000 Unit Tab PO DAILY JAQUELINE Ezetimibe 10 mg 08/05/20 09:00 Ezetimibe 10 Mg Tab PO DAILY JAQUELINE Sodium Chloride 1,000 mls @ 20 mls/hr 08/04/20 10:00 08/04/20 10:30 Saline 0.9% IV 20 mls/hr .Q24H JAQUELINE Administration Losartan Potassium 25 mg 08/04/20 21:00 Losartan 25 Mg Tab PO HS JAQUELINE Pravastatin Sodium 40 mg 08/04/20 21:00 Pravastatin Sodium 40 Mg Tab PO HS JAQUELINE Thrombin 5,000 unit 08/04/20 11:00 Thrombin (Bovine) 5,000 Unit Vial MISCELLANE 08/04/20 11:01 ONCE ONE Intake and Output 08/03/20 08/04/20 08/04/20 22:59 06:59 14:59 Other: # Voids 1 Weight 59.4 kg Patient Weight 08/05/20 06:59 Weight 59.4 kg EKG Interpretations (text) No EKG performed Assessment and Plan Plan: Assessment and plan #1 right groin pseudoaneurysm, patient scheduled to undergo thrombin injection of the femoral artery today #2 recent cardiac catheterization on July 25 which revealed mild nonobst ructive disease involving the RCA, aneurysmal dilated ascending descending aorta with severe aortic stenosis #3 hyperlipidemia, history of statin myopathy #4 known history of giant cell arteritis #5 hypertension #6 history of a basal cell carcinoma on the nose Plan Patient will undergo thrombin injection of the right femoral artery today. A repeat ultrasound will be performed tomorrow morning. If the pseudoaneurysm is closed, patient may be discharged home tomorrow, we will make her a follow-up appointment in the office . DNP note has been reviewed, I agree with a documented findings and plan of care. Patient was seen and examined.
[2020-08-04] MEDS ORDERED: THROMBIN (BOVINE) 5,000 UNIT VIAL MISCELLANE ONE (11:00)
[2020-08-04 11:02] LABS: African American GFR (CKD) >90 (>60 ml/min/1.73 sqM); Anion Gap 8 mmol/L; Blood Urea Nitrogen 11 mg/dL (7-17); Calcium 9.3 mg/dL (8.4-10.2); Carbon Dioxide 29 mmol/L (22-30); Chloride 103 mmol/L (98-107); Glucose 106 mg/dL (74-99); Non-African American GFR(CKD) 90 (>60 ml/min/1.73 sqM); Potassium 3.9 mmol/L (3.5-5.1); Sodium 140 mmol/L (137-145)
--- NOTE | 2020-08-04 11:32 | US ---
EXAMINATION TYPE: US lower ext pseudo artery RT DATE OF EXAM: 08/04/2020 COMPARISON: NONE CLINICAL HISTORY: assess for pseudoaneurysm for procedure. RT HEART CATH 07/25 EXAM PERFORMED: Grayscale and color Doppler duplex imaging performed of the groin, post cardiac becky ter to assess for pseudoaneurysm. SIDE PERFORMED: RIGHT Color and Waveform Doppler performed to assess for the presence of pseudoaneurysm; Is there ultrasound evidence of a pseudoaneurysm: YES Is there evidence of AV shunting: NO Is there a fluid collection present: NO IMPRESSION: Right common femoral artery pseudoaneurysm
--- NOTE | 2020-08-04 14:32 | US ---
EXAMINATION TYPE: US inj pseudoaneurysm DATE OF EXAM: 08/04/2020 COMPARISON: Ultrasound same dated earlier time CLINICAL HISTORY: right groin pseudoaneurysm. EXAM PERFORMED: Grayscale and color Doppler duplex imaging performed of the groin, post cardiac becky ter to assess for pseudoaneurysm. SIDE PERFORMED: Right Color and Waveform Doppler performed to assess for the presence of pseudoaneurysm; Procedure: Maximal barrier technique was utilized. The skin overlying the right groin pseudoaneurysm was localized with ultrasound and the overlying skin prepped and draped. Lidocaine was used for local anesthesia. Using ultrasound guidance a 25-gauge needle was advanced into the pseudoaneurysm. 100 un its of thrombin were injected under ultrasound guidance. Postprocedure imaging demonstrates no persis tence of the pseudoaneurysm under color Doppler. Patient remained neurovascularly intact distally. No immediate complication. No bleeding. IMPRESSION: Status post thrombin injection under ultrasound guidance for right groin pseudoaneurysm, thrombosis achieved plan to follow-up right groin ultrasound in a.m. tomorrow. This procedure perform ed by the undersigned.
[2020-08-04] MEDS ORDERED: ASPIRIN 81 MG PO SCH (21:00)
[2020-08-04] MEDS ORDERED: PRAVASTATIN SODIUM 40 MG TAB PO SCH (21:00)
[2020-08-04] MEDS ORDERED: LOSARTAN 25 MG TAB PO SCH (21:00)
[2020-08-04] MEDS ORDERED: EZETIMIBE 10 MG TAB PO SCH (21:00)
--- NOTE | 2020-08-05 08:11 | US ---
EXAMINATION TYPE: US lower ext pseudo artery RT DATE OF EXAM: 08/05/2020 COMPARISON: NONE CLINICAL HISTORY: follow up thrombin injection. EXAM PERFORMED: Grayscale and color Doppler duplex imaging performed of the groin, post cardiac becky ter to assess for pseudoaneurysm. SIDE PERFORMED: right Color and Waveform Doppler performed to assess for the presence of pseudoaneurysm; Is there ultrasound evidence of a pseudoaneurysm: no Is there evidence of AV shunting: no Is there a fluid collection present: Yes, hypoechoic area adjacent to vessels measures 2.8 x 1.1 x 1. 8 cm. IMPRESSION: 1. No diagnostic evidence of pseudoaneurysm on today's and. Proptosis of the previously described pse udoaneurysm. 2. There is a small fluid collection measuring 2.8 cm which could represent a small hematoma correlat e clinically.
[2020-08-05 08:50] VITALS: BP 153/80; PULSE 74; RESP 16; TEMP 98
[2020-08-05] MEDS ORDERED: EZETIMIBE 10 MG TAB PO SCH (09:00)
[2020-08-05] MEDS ORDERED: CHOLECALCIFEROL 1,000 UNIT TAB PO SCH (09:00)
--- NOTE | 2020-08-05 17:52 | P.PN ---
Subjective Progress Note Date: 08/05/20 HISTORY OF PRESENTING ILLNESS This is a pleasant 75-year-old female patient who has a known history of giant cell arteritis, valvular heart disease, mildly enlarged abdominal aorta, hyperlipidemia with statin myopathy, LDH, denies any prior history of smoking. She underwent a cardiac catheterization by Dr. Stover on July 25 which revealed mild nonobstructive disease involving the RCA, aneurysmal dilated dictation of the ascending aorta and severe aortic stenosis based on noninvasive study. Patient was found on an outpatient basis to have evidence of a right groin no aneurysm and is scheduled today to undergo thrombin injection of the right femoral artery by Dr. Jacome. Her blood pressure this morning 145/75, heart rate in the 80s, 97% on room air she is afebrile. No lab data yet available, patient did have a CBC and a BMP drawn. 08/05/2020 Patient seen and examined. Patient denies any chest pain or pressure. She had successful thrombin injection of her right femoral pseudoaneurysm. Ultrasound this morning shows resolution of pseudoaneurysm with hematoma. PHYSICAL EXAMINATION Vital signs reviewed CONSTITUTIONAL: No apparent distress. HEENT: Head is normocephalic. Pupils are equal, round. Sclerae anicteric. Mucous membranes of the mouth are moist. No JVD. No carotid bruit. CHEST EXAMINATION: Lungs are clear to auscultation. No chest wall tenderness is noted on palpation or with deep breathing. HEART EXAMINATION: Regular rate and rhythm. S1, S2 heard. No murmurs, gallops or rub. ABDOMEN: Soft, nontender. Positive bowel sounds. EXTREMITIES: +right femoral ecchymosis, no femoral bruit, no femoral pain with palpation NEUROLOGIC EXAMINATION: Patient is awake, alert and oriented x3. Assessment and plan #1 right groin pseudoaneurysm, patient scheduled to undergo thrombin injection of the femoral artery today #2 recent cardiac catheterization on July 25 which revealed mild nonobstructive disease involving the RCA, aneurysmal dilated ascending descending aorta with severe aortic stenosis #3 hyperlipidemia, history of statin myopathy #4 known history of giant cell arteritis #5 hypertension #6 history of a basal cell carcinoma on the nose Plan Successful thrombin injection with ultrasound showing improvement and pseudoaneurysm. Outpatient follow-up for management of her severe aortic stenosis. Objective - Vital Signs Vital signs: Vital Signs Temp 98.0 F 08/05/20 08:07 Pulse 74 10/10/20 15:00 Resp 16 08/05/20 15:00 BP 153/80 08/05/20 08:07 Pulse Ox 99 08/05/20 08:07 Intake & Output 08/04/20 08/05/20 08/05/20 18:59 06:59 18:59 Intake Total 260 450 600 Balance 260 450 600 Weight 59.4 kg Intake: IV 160 Sodium Chloride 0.9% 1, 160 000 ml @ 20 mls/hr IV . Q24H [facility] Rx#:[id number] Oral 100 450 600 Other: Voiding Method Toilet Toilet Toilet # Voids 1 2 4 - Labs CBC & Chem 7: 08/04/20 10:35
--- NOTE | 2020-08-05 17:54 | P.DS ---
Providers Date of admission: 08/04/20 08:22 Attending physician: Slim Harrison Primary care physician: [facility] Course: Patient is a pleasant 75-year-old female with history of severe Aortic stenosis, Hyperlipidemia, giant cell arteritis, ascending aortic aneurysm, hypertension and history of basal cell carcinoma who is status post heart catheterization via right femoral approach on July 25 which revealed mild nonobstructive disease. she unfortunately was found to have a pseudoaneurysm in the office and therefore was admitted to the hospital for further management. She had a thrombin injection on 08/04/2020 which she tolerated well. Repeat ultrasound on 08/05 showed resolution of pseudoaneurysm. Patient is stable for discharge on 08/05/2020. Patient Condition at Discharge: Good Plan - Discharge Summary Discharge Rx Participant: No New Discharge Prescriptions: No Action Acetaminophen [Tylenol] 1,000 mg PO Q4H PRN PRN Reason: Pain Cholecalciferol [Vitamin D3 (25 Mcg = 1000 Iu)] 1,000 unit PO DAILY Losartan [Cozaar] 25 mg PO HS Pravastatin Sodium [Pravachol] 40 mg PO HS Ezetimibe [Zetia] 10 mg PO DAILY Vitamin B Complex 1 each PO DAILY Naproxen Sodium [Aleve] 220 mg PO DAILY PRN PRN Reason: Pain Aspirin 81 mg PO HS Discharge Medication List Acetaminophen [Tylenol] 1,000 mg PO Q4H PRN 11/20/17 [History] Cholecalciferol [Vitamin D3 (25 Mcg = 1000 Iu)] 1,000 unit PO DAILY 11/20/17 [History] Losartan [Cozaar] 25 mg PO HS 11/20/17 [History] Pravastatin Sodium [Pravachol] 40 mg PO HS 11/20/17 [History] Aspirin 81 mg PO HS 07/07/20 [History] Ezetimibe [Zetia] 10 mg PO DAILY 07/07/20 [History] Naproxen Sodium [Aleve] 220 mg PO DAILY PRN 07/07/20 [History] Vitamin B Complex 1 each PO DAILY 07/07/20 [History] Follow up Appointment(s)/Referral(s): Tom Ramos MD [STAFF PHYSICIAN] - 1 Week Luther Stover MD [STAFF PHYSICIAN] - 1 Week
== END 2020-08-05 17:47 | disposition home or self-care (01) ==
LOC: 3NCARDOBS 08:22 → EDSTATUS 12:30
PROVIDERS: ADMIT Internal Medicine Interventional Cardiology; ATTEND Internal Medicine Interventional Cardiology
DX: I72.4 Aneurysm of artery of lower extremity (principal); I25.10 Atherosclerotic heart disease of native coronary artery without angina pectoris; I71.2 Thoracic aortic aneurysm, without rupture; I71.4 Abdominal aortic aneurysm, without rupture; I35.0 Nonrheumatic aortic (valve) stenosis; E78.5 Hyperlipidemia, unspecified; M31.6 Other giant cell arteritis; I10 Essential (primary) hypertension; G72.0 Drug-induced myopathy; T46.6X5A Adverse effect of antihyperlipidemic and antiarteriosclerotic drugs, initial encounter; Z85.828 Personal history of other malignant neoplasm of skin; Z85.820 Personal history of malignant melanoma of skin; Z90.89 Acquired absence of other organs; Z98.51 Tubal ligation status; Z98.890 Other specified postprocedural states; Z80.9 Family history of malignant neoplasm, unspecified; Z80.8 Family history of malignant neoplasm of other organs or systems; Y92.9 Unspecified place or not applicable
CPT/HCPCS: 80048; 93975 ×2; 93926 ×2; 36002; G0379; G0378 ×2

== ENCOUNTER → 2020-08-30 | Outpatient (CLI) | payer MEDICARE ==
[2020-08-30 08:02] LABS: HCT 41.3 % (34.0-46.0); HGB 13.7 gm/dL (11.4-16.0); MCH 31.9 pg (25.0-35.0); MCHC 33.1 g/dL (31.0-37.0); MCV 96.4 fL (80.0-100.0); Mean Platelet Volume 6.9; Platelet Count 254 k/uL (150-450); RBC 4.29 m/uL (3.80-5.40); RDW 12.5 % (11.5-15.5); WBC 4.5 k/uL (3.8-10.6)
[2020-08-30 12:25] LABS: African American GFR (CKD) 84.8 (60.0-200.0); Albumin 4.4 g/dL (3.80-4.90); Albumin/Globulin Ratio 1.76 (1.60-3.17); Anion Gap 8.9 mmol/L (4.00-12.00); BUN/Creat Ratio 16.25 Ratio (12.00-20.00); Calcium 9.4 mg/dL (8.7-10.3); Carbon Dioxide 28.1 mmol/L (21.6-31.8); Globulin 2.5 g/dL (1.6-3.3); Non-African American GFR(CKD) 73.1 (60.0-200.0); Potassium 4.7 mmol/L (3.5-5.5); Total Bilirubin 0.5 mg/dL (0.2-1.2); Total Protein 6.9 g/dL (6.2-8.2)
== END | disposition home or self-care (01) ==
LOC: LABWHC1 07:07
PROVIDERS: ATTEND Nurse Practitioner Acute Care
DX: I35.0 Nonrheumatic aortic (valve) stenosis (principal); I50.9 Heart failure, unspecified
CPT/HCPCS: 36415; 80053; 83880; 85027

== ENCOUNTER → 2021-03-19 | Outpatient (CLI) | payer MEDICARE ==
[2021-03-19 11:19] LABS: ALT 20 U/L (8-44); AST 27 U/L (13-35); African American GFR (CKD) 84.8 (60.0-200.0); Albumin/Globulin Ratio 1.76 (1.60-3.17); Alkaline Phosphatase 66 U/L (41-126); BUN/Creat Ratio 16.25 Ratio (12.00-20.00); C Reactive Protein <0.4 mg/dL (0.0-0.8); Calcium 9.3 mg/dL (8.7-10.3); Carbon Dioxide 30.7 mmol/L (21.6-31.8); Chloride 103 mmol/L (96-109); Globulin 2.5 g/dL (1.6-3.3); Glucose 129 mg/dL (70-110); Non-African American GFR(CKD) 73.1 (60.0-200.0); Potassium 4.6 mmol/L (3.5-5.5); Sodium 139 mmol/L (135-145); Total Bilirubin 0.5 mg/dL (0.3-1.2); Total Protein 6.9 g/dL (6.2-8.2)
[2021-03-20 16:52] LABS: Chol/HDL Ratio 2.68
== END | disposition home or self-care (01) ==
LOC: LABWHC1 07:21
PROVIDERS: ATTEND Family Medicine
DX: E78.5 Hyperlipidemia, unspecified (principal); M31.5 Giant cell arteritis with polymyalgia rheumatica
CPT/HCPCS: 36415; 80053; 80061; 85652; 86140

== ENCOUNTER → 2021-08-03 | Outpatient (CLI) | payer MEDICARE ==
[2021-08-03 10:06] LABS: ALT 20 U/L (4-34); AST 37 U/L (14-36); African American GFR (CKD) >90 (>60 ml/min/1.73 sqM); Albumin 4.6 g/dL (3.5-5.0); Alkaline Phosphatase 72 U/L (38-126); Anion Gap 10 mmol/L; Blood Urea Nitrogen 12 mg/dL (7-17); Calcium 9.6 mg/dL (8.4-10.2); Carbon Dioxide 27 mmol/L (22-30); Chloride 102 mmol/L (98-107); Glucose 111 mg/dL (74-99); Non-African American GFR(CKD) 84 (>60 ml/min/1.73 sqM); Sodium 139 mmol/L (137-145); Total Bilirubin 0.6 mg/dL (0.2-1.3)
--- NOTE | 2021-08-03 12:20 | CT ---
EXAMINATION TYPE: CT chest w con DATE OF EXAM: 08/03/2021 COMPARISON: 12/31/2017 HISTORY: 76-year-old female solitary pulmonary nodule, pain and discomfort between shoulder blades TECHNIQUE: Contiguous axial scanning of the chest after the administration of 100 mL of Isovue 300. Coronal/sagittal reconstructions performed. CT DLP: 136.6mGycm. Automatic exposure control utilized for a dose reduction. FINDINGS: Heart normal size without pericardial effusion. Endovascular aortic valve replacement is demonstrated . Aorta normal caliber with conventional arch vessel branching anatomy. No thoracic lymphadenopathy by CT size criteria. Biapical pleural-parenchymal scarring. Mild centrilobular emphysema. 6 mm anterior right midlung pulmonary nodule is unchanged. 3 mm lateral right midlung pulmonary nodule is unchanged. The minimal stranding posterior right midlung opacity is unchanged. Visualized upper abdomen shows mild to moderate atherosclerotic calcifications infrarenal aorta. Ther e is a tiny nonspecific 4 mm cortical lesion posterior left kidney minimally larger from 2018 suggest ing cyst. Diffuse thickening of the left adrenal gland is unchanged. Bones: Mild to moderate degenerative disc disease lower thoracic spine. IMPRESSION: 1. COPD with mild emphysema. 2. Unchanged pulmonary nodularity from 2018 compatible with a benign etiology. 3. Some stable strandy scarring within the right middle lobe. 4. Given the patient's increased risk for development of lung cancer, consider low-dose lung cancer s creening CT. 5. Interval endovascular aortic valve replacement.
== END | disposition home or self-care (01) ==
LOC: RADCTMAIN 08:49
PROVIDERS: ATTEND Family Medicine
DX: R91.1 Solitary pulmonary nodule (principal)
CPT/HCPCS: 80053; 71260; 36415; Q9967

== ENCOUNTER → 2021-10-08 | Outpatient (CLI) | payer MEDICARE ==
--- NOTE | 2021-10-09 15:07 | MM ---
Reason for exam: screening (asymptomatic). Last mammogram was performed 1 year and 3 months ago. History: Patient is postmenopausal and has history of other cancer at age 33. Physical Findings: A clinical breast exam by your physician is recommended on an annual basis and results should be correlated with mammographic findings. MG 3D Screening Mammo W/Cad Bilateral CC and MLO view(s) were taken. Prior study comparison: July 18, 2020, bilateral MG 3d screening mammo w/cad. April 22, 2019, bilateral MG 3d screening mammo w/cad. There are scattered fibroglandular densities. Finding #1: There are 7 mm equal density (isodense), obscured masses in the upper outer quadrant of both breasts. Finding #2: There are grouped/clustered calcifications in the upper outer quadrant of the right breast. ASSESSMENT: Incomplete: need additional imaging evaluation, BI-RAD 0 RECOMMENDATION: Special view mammogram of both breasts. If lesion persists on supplemental views, image directed ultrasound is recommended. [facility] will attempt to contact patient to return for supplemental views and ultrasound if indicated.
== END | disposition home or self-care (01) ==
LOC: RADMAMWWP 07:53
PROVIDERS: ATTEND Family Medicine
DX: Z12.31 Encounter for screening mammogram for malignant neoplasm of breast (principal)
CPT/HCPCS: 77063; 77067

== ENCOUNTER → 2021-10-23 | Outpatient (CLI) | payer MEDICARE ==
--- NOTE | 2021-10-23 14:49 | MM ---
Reason for exam: additional evaluation requested from abnormal screening. Last mammogram was performed less than 1 month ago. History: Patient is postmenopausal and has history of other cancer at age 33. Taking other hormone for 1 year. Physical Findings: Nurse did not find any significant physical abnormalities on exam. MG 3D Work Up W/Cad LOBITO Bilateral spot compression CC and LM view(s) were taken. Spot compression MLO, CC with magnification, and LM with magnification view(s) were taken of the right breast. Prior study comparison: October 08, 2021, bilateral MG 3d screening mammo w/cad. July 18, 2020, bilateral MG 3d screening mammo w/cad. There are scattered fibroglandular densities. Faint group of microcalcifications right breast were present previously. More distinct on screening due to C view technique. Left posterior nodularity also favored to represent an axillary node, 6 month follow up. Right breast posterior upper outer quadrant nodularity compatible with low axillary node, benign. These results were verbally communicated with the patient and result sheet given to the patient on 10/23/21. ASSESSMENT: Probably benign, BI-RAD 3 RECOMMENDATION: Follow-up diagnostic mammogram of the left breast in 6 months.
== END | disposition home or self-care (01) ==
LOC: RADMAMWWP 13:28
PROVIDERS: ATTEND Family Medicine
DX: R92.8 Other abnormal and inconclusive findings on diagnostic imaging of breast (principal)
CPT/HCPCS: 77066; G0279; 77062

== ENCOUNTER → 2022-03-15 | Day surgery (SDC) | payer MEDICARE ==
[2022-03-14 09:30] VITALS: BMI 22.4
[~2022-03-15] MED LIST changes: -ALPRAZolam 0.25 MG TAB PO PRN; -ALPRAZolam 0.5 MG TAB PO PRN; -ASPIRIN 325 MG TAB PO ONE; -ATORVASTATIN 80 MG TAB PO ONE; -IOPAMIDOL-370 125ML BTL INJ ONE; +LACTATED RINGERS 1,000 ML IV SCH; -LIDOCAINE 1% INJ 10MG/ML (20 ML MDV) SQ ONE; +LIDOCAINE 2% INJ 20 MG/ML (2 ML VIAL) ONE; -MIDAZOLAM 2 MG/2 ML VIAL IVP ONE; -NITROGLYCERIN SL TABS 0.4 MG TAB SUBLINGUAL PRN; +PROPOFOL 10 MG/ML 20 ML VIAL IV ONE; -RX INFO: IV CONTRAST WAS GIVEN 1 EACH MISC MISCELLANE PRN; -SODIUM CHLORIDE 0.9% 1,000 ML IV ONE; -SODIUM CHLORIDE 0.9% 1,000 ML IV SCH; -SODIUM CHLORIDE 0.9% 1,000 ML in EMPTY BAG 1 BAG IV ONE; -fentaNYL (PF) 50 MCG/ML 2 ML AMP IVP ONE
[2022-03-15 07:05] VITALS: RESP 18; TEMP 97.8
--- NOTE | 2022-03-15 08:16 | P.PCN ---
Date of Procedure: 03/15/22 Procedure(s) Performed: Brief history: Patient is a pleasant 76-year-old white female scheduled for an elective upper endoscopy as well as colonoscopy as a part of evaluation of lower sternal chest pain/epigastric pain and screening for colon cancer Procedure performed: Esophagogastroduodenoscopy with biopsy Colonoscopy Preoperative diagnosis: Epigastric pain and lower sternal chest pain of several months duration Screening for colon cancer Anesthesia: MAC Procedure: After informed consent was obtained from the patient was brought into the endoscopy unit and IV sedation was administered by anesthesia under continuous monitoring. Initially upper endoscopy was done. The Olympus GF 160 video en doscope was inserted inserted into the mouth and esophagus intubated without any difficulty and was gradually advanced into the stomach and duodenum and carefully examined. The bulb and second part of the duodenum appeared normal. The scope was then withdrawn into the stomach adequately insufflated with air and upon careful examination the antrum had multiple scattered erosions and biopsies were done from this area. The body, cardia and fundus appeared normal. The scope was then withdrawn into the esophagus. The GE junction was located at 40 cm to the incisors. It appeared regular with no erythema erosions or ulcerations. Rest of the esophagus appeared normal. Patient tolerated the procedure well. At this time the patient continued to remain sedation. Initial digital rectal examination was normal. Olympus CF 160 video colonoscope was then inserted into the rectum and gradually advanced to the cecum without any difficulty. Careful examination was performed as the scope was gradually being withdrawn. The prep was excellent. The cecum, ascending colon, transverse colon, descending colon, sigmoid colon and rectum appeared normal. Scattered sigmoid diverticulosis. Retroflexion was performed in the rectum and grade 2 internal were noted. Patient tolerated the procedure well. Impression: 1. Upper endoscopy revealed antral erosive gastritis but no evidence of esopha gitis or peptic ulcer disease 2. Colonoscopy revealed scattered sigmoid diverticula cyst and grade 2 internal Recommendations: Findings of this examination were discussed with the patient as well as a family. She was advised to follow with the biopsy results. She will be given a trial of Prilosec 20 mg daily but he can have him for breakfast as his symptoms are suggestive of gastroesophageal reflux disease.
[2022-03-15 08:34] VITALS: BP 128/73; PULSE 79
== END ==
LOC: ORWHC2ENDO 06:39
PROVIDERS: ATTEND Internal Medicine Gastroenterology
DX: Z12.11 Encounter for screening for malignant neoplasm of colon (principal); K57.30 Diverticulosis of large intestine without perforation or abscess without bleeding; K29.50 Unspecified chronic gastritis without bleeding; K20.90 Esophagitis, unspecified without bleeding; I25.10 Atherosclerotic heart disease of native coronary artery without angina pectoris; I10 Essential (primary) hypertension; E78.5 Hyperlipidemia, unspecified; I77.6 Arteritis, unspecified; Z85.828 Personal history of other malignant neoplasm of skin; Z98.51 Tubal ligation status; Z95.2 Presence of prosthetic heart valve; Z79.82 Long term (current) use of aspirin; Z79.899 Other long term (current) drug therapy; Z88.8 Allergy status to other drugs, medicaments and biological substances
CPT/HCPCS: 88305; 43239; J2704; J2001; G0121; 45378

== ENCOUNTER → 2022-04-17 | Outpatient (CLI) | payer MEDICARE ==
--- NOTE | 2022-04-17 11:03 | MM ---
Reason for Exam: Follow-up at short interval from prior study. Last screening mammogram was performed 6 month(s) ago. Patient History: Menarche at age 15. First Full-Term at age 25. Postmenopausal. Other cancer, age 33. Risk Values: Kylah 5 year model risk: 1.6%. NCI Lifetime model risk: 3.7%. Prior Study Comparison: 07/18/2020 Bilateral Screening Mammogram, [facility]. 10/08/2021 Bilateral Screening Mammogram, [facility]. 10/23/2021 Bilateral Diagnostic Mammogram, [facility]. Tissue Density: Left: The breast tissue is heterogeneously dense. This may lower the sensitivity of mammography. Findings: Analyzed By CAD. No distinct nodule or mass. No suspicious calcifications. Overall Assessment: Benign, BI-RAD 2 Management: Screening Mammogram of both breasts in 6 months. A clinical breast exam by your physician is recommended on an annual basis and results should be correlated with mammographic findings. This exam should not preclude additional follow-up of suspicious palpable abnormalities. Results were given to the patient verbally at the time of exam. Electronically signed and approved by: Thom Peterson M.D. Radiologis
== END | disposition home or self-care (01) ==
LOC: RADMAMWWP 10:40
PROVIDERS: ATTEND Family Medicine
DX: R92.8 Other abnormal and inconclusive findings on diagnostic imaging of breast (principal)
CPT/HCPCS: 77065; G0279; 77061

== ENCOUNTER → 2022-08-23 | Outpatient (CLI) | payer MEDICARE ==
[2022-08-23 10:40] LABS: Basophils # (A) 0.05 X 10*3/uL (0.00-0.10); Basophils % (A) 0.6 %; Eosinophils # (A) 0.07 X 10*3/uL (0.04-0.35); Eosinophils % (A) 0.8 %; HCT 42.9 % (37.2-46.3); HGB 14.2 g/dL (12.0-15.0); Immature Grans, Automated 0.4 %; Lymphocytes # (A) 0.86 X 10*3/uL (0.90-5.00); Lymphocytes % (A) 10.1 %; MCHC 33.1 g/dL (32.0-37.0); MCV 90.7 fL (80.0-97.0); Mean Platelet Volume 9.5 fL (9.5-12.2); Monocytes # (A) 0.62 X 10*3/uL (0.20-1.00); Monocytes % (A) 7.3 %; NRBC Per 100 WBC 0 /100 WBCS (0.0-0.0); Neutrophils # (A) 6.86 X 10*3/uL (1.80-7.70); Neutrophils % (A) 80.8 %; Platelet Count 317 X 10*3/uL (140-440); RBC 4.73 X 10*6/uL (4.10-5.20); RDW 12.4 % (11.5-14.5); WBC 8.49 X 10*3/uL (4.50-10.00)
[2022-08-23 10:55] LABS: ALT 17 U/L (8-44); AST 28 U/L (13-35); African American GFR (CKD) 81.4 (60.0-200.0); Albumin 3.9 g/dL (3.8-4.9); Albumin/Globulin Ratio 1.09 (1.60-3.17); Alkaline Phosphatase 84 U/L (41-126); BUN/Creat Ratio 14.18 Ratio (12.00-20.00); Blood Urea Nitrogen 11.6 mg/dL (9.0-27.0); Calcium 9.5 mg/dL (8.7-10.3); Carbon Dioxide 28.9 mmol/L (20.0-27.5); Chloride 99 mmol/L (96-109); Chol/HDL Ratio 3.48 Ratio; Globulin 3.6 g/dL (1.6-3.3); Glucose 106 mg/dL (70-110); LDL Cholesterol,Calculated 123.6 mg/dL (0.0-131.0); Non-African American GFR(CKD) 70.2 (60.0-200.0); Potassium 5.4 mmol/L (3.5-5.5); Sodium 137 mmol/L (135-145); Total Protein 7.6 g/dL (6.2-8.2)
[2022-08-23 11:07] LABS: Erythrocyte Sedimentation Rate 20 mm/Hr (0-30)
== END | disposition home or self-care (01) ==
LOC: LABWHC1 07:06
PROVIDERS: ATTEND Family Medicine
DX: R05.3 Chronic cough (principal); I10 Essential (primary) hypertension; E78.5 Hyperlipidemia, unspecified
CPT/HCPCS: 36415; 80053; 80061; 84443; 85025; 85652; 86140

== ENCOUNTER → 2022-09-09 | Outpatient (CLI) | payer MEDICARE ==
--- NOTE | 2022-09-09 15:03 | XR ---
EXAMINATION TYPE: XR chest 2V DATE OF EXAM: 09/09/2022 COMPARISON: Chest CT August 03, 2021 HISTORY: Chronic cough. TECHNIQUE: Frontal and lateral views of the chest are obtained. FINDINGS: There is mild chronic parenchymal changes bilaterally without suspicious new focal air spa ce opacity, pleural effusion, or pneumothorax seen. The cardiac silhouette size is stable and within normal limits. Metallic stent graft in the aortic root is redemonstrated. The osseous structures ar e intact. IMPRESSION: Chronic changes without acute pulmonary process.
== END | disposition home or self-care (01) ==
LOC: RADXRMAIN 14:44
PROVIDERS: ATTEND Family Medicine
DX: R05.3 Chronic cough (principal)
CPT/HCPCS: 71046

== ENCOUNTER → 2022-10-18 | Outpatient (CLI) | payer MEDICARE ==
--- NOTE | 2022-10-21 09:52 | MM ---
Reason for Exam: Screening (asymptomatic). Last screening mammogram was performed 12 month(s) ago. Patient History: Menarche at age 15. First Full-Term at age 25. Postmenopausal. Other cancer, age 33. Risk Values: Kylah 5 year model risk: 1.6%. NCI Lifetime model risk: 3.4%. Prior Study Comparison: 10/08/2021 Bilateral Screening Mammogram, [facility]. 10/23/2021 Bilateral Diagnostic Mammogram, [facility]. 04/17/2022 Left MG 3D diag mammo w/cad LT, [facility]. Tissue Density: The breast tissue is heterogeneously dense. This may lower the sensitivity of mammography. Findings: Analyzed By CAD. There is no suspicious group of microcalcifications or new suspicious mass in either breast. Overall Assessment: Negative, BI-RAD 1 Management: Screening Mammogram of both breasts in 1 year. A clinical breast exam by your physician is recommended on an annual basis and results should be correlated with mammographic findings. [facility] will attempt to contact patient to return for supplemental views and ultrasound if indicated. Electronically signed and approved by: Yossi Desai DO
== END | disposition home or self-care (01) ==
LOC: RADMAMWWP 08:46
PROVIDERS: ATTEND Family Medicine
DX: Z12.31 Encounter for screening mammogram for malignant neoplasm of breast (principal); Z78.0 Asymptomatic menopausal state
CPT/HCPCS: 77063; 77067

== ENCOUNTER → 2022-10-29 | Outpatient (CLI) | payer MEDICARE ==
--- NOTE | 2022-10-29 12:24 | CT ---
EXAMINATION TYPE: CT chest wo con CT DLP: 352.3 mGycm, Automated exposure control for dose reduction was used. DATE OF EXAM: 10/29/2022 11:59 AM COMPARISON: 08/03/2021. CLINICAL INDICATION:Female, 77 years old with history of R05.3 chronic cough, Chronic cough and razo um pain. TECHNIQUE: Multiple axial images were obtained through the chest. Sagittal and coronal reformats were created for review. Contrast used: none Oral contrast used: none. FINDINGS: LUNGS/ PLEURA: No evidence for honeycombing. No focal consolidation, pneumothorax or pleural effusion . No bronchiectasis or bronchial wall thickening. There is diffuse mosaic attenuation to the parenchy ma suggesting air trapping. Scattered fine peripheral reticulation. Lung nodule seen on prior are not definitively visualized. No suspicious pulmonary nodules identified. Mild intralobular septal thicke karen. AIRWAY: Patent and unremarkable. HEART: Aortic valvular repair changes. The heart is within normal limits for size. Coronary artery at herosclerosis is present. MEDIASTINUM: No gross evidence of adenopathy. VASCULATURE: No aortic aneurysm. Atherosclerosis of the arterial vasculature. No evidence of aneurys m. MUSCULOSKELETAL: No acute osseous abnormalities, mild multilevel disc degeneration changes. Sternum a ppears intact without evidence of fracture. SOFT TISSUES/LYMPH NODES: Unremarkable. LOWER NECK: No significant findings. UPPER ABDOMEN: No significant findings. IMPRESSION: 1. Mosaic attenuation pattern to the lung parenchyma which is new from 08/03/2021 finding is rather n onspecific and could represent obstructive small airways disease versus hypersensitivity pneumonitis versus sequela of prior infection. 2. No evidence for pulmonary fibrosis. 3. Mild intralobular septal thickening correlate for congestive heart failure. 4. No suspicious pulmonary nodules identified. 5. The sternum appears intact.
== END | disposition home or self-care (01) ==
LOC: RADCTMAIN 11:33
PROVIDERS: ATTEND Internal Medicine Critical Care Medicine
DX: J84.89 Other specified interstitial pulmonary diseases (principal); J98.4 Other disorders of lung
CPT/HCPCS: 71250

== ENCOUNTER → 2022-11-08 | Outpatient (CLI) | payer MEDICARE | END | disposition home or self-care (01) | LOC: LABWHC1 07:06 | PROVIDERS: ATTEND Internal Medicine Critical Care Medicine | DX: R05.3 Chronic cough (principal); R76.0 Raised antibody titer | CPT/HCPCS: 36415; 85652; 86431 ==

== ENCOUNTER 2022-11-15 11:14 | Day surgery (SDC) | payer MEDICARE ==
[2022-11-12 15:30] VITALS: BMI 21.0
[~2022-11-15 11:14] MED LIST changes: -LIDOCAINE 2% INJ 20 MG/ML (2 ML VIAL) ONE; -PROPOFOL 10 MG/ML 20 ML VIAL IV ONE
[2022-11-15 11:42] VITALS: TEMP 97.9
[2022-11-15] MEDS ORDERED: SUCCINYLCHOLINE CHLORIDE 200 MG/10 ML VIAL IV ONE (12:20)
[2022-11-15] MEDS ORDERED: fentaNYL (PF) 50 MCG/ML 2 ML AMP ONE (12:20)
[2022-11-15] MEDS ORDERED: PROPOFOL 10 MG/ML 20 ML VIAL IV ONE (12:20)
[2022-11-15] MEDS ORDERED: MIDAZOLAM 2 MG/2 ML VIAL ONE (12:20)
[2022-11-15] MEDS ORDERED: LIDOCAINE 2% INJ 20 MG/ML (2 ML VIAL) ONE (12:20)
--- NOTE | 2022-11-15 12:50 | P.PCN ---
Date of Procedure: 11/15/22 Operative Findings: Date of Procedure: 11/15/22 Preoperative Diagnosis: ILD, Rheumatoid arthritis Postoperative Diagnosis: ILD, Rheumatoid arthritis Procedure(s) Performed: 1 flexible bronchoscopy 2 Bronchioloalveolar lavage of the lingula, transbronchial biopsies of the right lung Surgeon: Obey Day Chart Picker #1: Nanci Smith Estimated Blood Loss (ml): 0 Pathology: other Condition: stable Disposition: same day Operative Findings: After obtaining the consent the patient was taken to the OR suite he was intubated and put on MV by anesthesia then the scope was advanced to the ET tube until the Trachea was seen and it was normal and then the opal appears normal then the scope advanced to the left main and DENIS LB1-LB3 were seen and no endobronchial lesions were seen then the scope advanced to the lingula and the LB4 and LB5 were seen and no endobronchial lesions were seen the scope retracted and advanced to the left lower lobes LB6 to LB12 were seen one by one and no endobronchial lesions, then the scope was retracted back to the opal and advanced to the Right main and RUL RB1 and RB2 and RB3 were seen one by one and no endobronchial lesions were seen the scope then retracted and advanced to the BI and RML RB4 and RB5 were seen and no endobronchial lesions were seen then it was retracted and advanced to the RLL RB6 to RB12 were seen one by one and no endobronchial lesions. After completing and airway inspection, the flexible bronchoscope was directed to the lingula. The severe segment of the lingula was wedged. The bronchial alveolar lavage was done. A total of 80cc the fluid was infused in approximately 25 mL of aspirate was obtained without any major difficulties. Subsequently, the bronchoscope was moved to the right side and under fluoroscopic guidance, transbronchial biopsies of the right lower lobe lateral and anterior segment was done. Also transbronchial biopsies of the right upper lobe anterior segment was done. No endobronchial bleeding. The biopsy was completed without any major complications. Laboratory biopsies were completed without any complication. No bleeding encountered. Bronchoscope was removed and the patient was transferred to [facility] in stable condition. Chest x-rays to follow.
--- NOTE | 2022-11-15 13:06 | FL ---
Intraoperative/procedural fluoroscopic services were provided for bronchoscopy. Total fluoroscopy virginie e is 1.17 minutes with a total of 2 submitted images to PACS. Please see the operative note for furth er details.
[2022-11-15 13:15] VITALS: RESP 16
[2022-11-15 14:01] VITALS: BP 156/79
[2022-11-15 14:14] VITALS: PULSE 71
--- NOTE | 2022-11-15 14:16 | XR ---
EXAMINATION TYPE: XR chest 1V DATE OF EXAM: 11/15/2022 2:09 PM COMPARISON: Chest radiographs from 09/09/2022, CT chest 10/29/2022, fluoroscopic bronchoscopy images . TECHNIQUE: XR chest 1V Portable AP radiograph of the chest. CLINICAL INDICATION:Female, 77 years old with history of post biopsy; FINDINGS: Lungs/Pleura: No pneumothorax or pleural effusion. Hyperinflation. Right basilar wedge-shaped opacity is new. Pulmonary vascularity: Unremarkable. Heart/mediastinum: Cardiomediastinal silhouette is unremarkable. Atherosclerotic calcifications are seen in the aorta. Aortic stent graft demonstrated. Musculoskeletal: No acute osseous pathology. IMPRESSION: 1. Post biopsy changes with right basilar wedge shaped opacity which may represent atelectasis and/o r hemorrhage. No pneumothorax. 2. COPD changes.
[2022-11-15 23:02] LABS: Appearance,BF Cloudy
== END 2022-11-15 14:54 | disposition home or self-care (01) ==
LOC: ORWHC2ENDO 11:14
PROVIDERS: ATTEND Internal Medicine Critical Care Medicine
DX: R91.1 Solitary pulmonary nodule (principal); J44.9 Chronic obstructive pulmonary disease, unspecified; J84.9 Interstitial pulmonary disease, unspecified; M06.9 Rheumatoid arthritis, unspecified
CPT/HCPCS: 89050; 87252; 87070; 87205; 87116; 87102; 87206; 71045; 31628; 31624; J2250; J0330; J3010; J2704; J2001

== ENCOUNTER → 2023-04-11 | Outpatient (CLI) | payer MEDICARE ==
--- NOTE | 2023-04-11 10:17 | FL ---
EXAMINATION TYPE: FL esophagram DATE OF EXAM: 04/11/2023 COMPARISON: NONE HISTORY: 89 year-old female J84.9, R13.19. Trouble swallowing. TECHNIQUE: A double contrast esophagram study is performed. A total of 2 minutes 47 seconds of fluo roscopic time was utilized during procedure and 54 images obtained. Total dose area product (DAP) in uGy*m?, mGy*cm? (or similar): 280.72. FINDINGS: There is moderate anterior endplate spondylosis relating to disc/endplate degenerative change C5-C7 l evels. This results in focal impressions onto the back wall of the cervical esophagus and mild overal l narrowing. No obstruction is seen. No significant thickening of the cricopharyngeus muscle. Hypopha ryngeal anatomy is otherwise maintained. The thoracic esophagus shows normal course and caliber. There is mild distal esophageal dysmotility w ith some delay in complete clearance from the distal esophagus secondary to blunted secondary strippi ng waves. No mucosal lesion or abnormal filling defect. No evidence of hiatal hernia or stricture noted. Unable to elicit any gastroesophageal reflux during the course of the exam. IMPRESSION: 1. Esophagram showing mild narrowing in the cervical esophagus secondary to anterior endplate spondyl osis C5-C7 levels. No obstruction. 2. Mild dysmotility distal esophagus. No stricture. No sizable hiatal hernia. Unable to elicit any ga stroesophageal reflux during the course of the exam.
== END | disposition home or self-care (01) ==
LOC: RADUSWWP 08:49
PROVIDERS: ATTEND Internal Medicine Pulmonary Disease
DX: K22.89 Other specified disease of esophagus (principal); J84.9 Interstitial pulmonary disease, unspecified; R13.19 Other dysphagia
CPT/HCPCS: 74240

== ENCOUNTER → 2023-08-01 | Outpatient (CLI) | payer MEDICARE ==
--- NOTE | 2023-08-01 19:55 | XR ---
EXAMINATION TYPE: XR cervical spine comp DATE OF EXAM: 08/01/2023 3:58 PM CLINICAL INDICATION:Female, 78 years old with history of M54.2 CERVICALGIA; [facility] COMPARISON: 09/02/2019 TECHNIQUE: The cervical spine was imaged in frontal, lateral, odontoid and bilateral oblique. FINDINGS: The osseous structures show grade 1 anterolisthesis alignment at C7-T1 without evidence of an acute f racture. There are osteophytes noted throughout the cervical spine on the anterior and lateral aspect s of the vertebral bodies. Findings are worse at C5-C6 and C7 The intervertebral disk spaces are narr owed at multiple levels. Pedicles are intact. Soft tissues are within normal limits. The odontoid ap pears intact. IMPRESSION: 1. No fracture or dislocation. 2. Mild to moderate degenerative disc disease changes of the cervical spine.
== END | disposition home or self-care (01) ==
LOC: RADXRMAIN 15:33
PROVIDERS: ATTEND Family Medicine
DX: M50.322 Other cervical disc degeneration at C5-C6 level (principal)
CPT/HCPCS: 72050

== ENCOUNTER → 2023-09-12 | Outpatient (CLI) | payer MEDICARE ==
--- NOTE | 2023-09-14 08:39 | MR ---
EXAMINATION TYPE: MR cervical spine wo con DATE OF EXAM: 09/12/2023 12:57 PM CLINICAL INDICATION:Female, 78 years old with history of M50.30 OTHER CERVICAL DISC DEGENERATION; [facility] , COMPARISON: None. TECHNIQUE: Multi planar, multi sequence imaging was performed utilizing: T1-weighted, T2-weighted, an d turbo inversion recovery imaging of the cervical spine. IV Contrast: (none if empty) FINDINGS: Alignment: The cervical vertebral bodies have preserved heights. Grade 1 anterolisthesis of C3 on C4. Bones: Scattered Modic endplate changes with osteophytes and disc space narrowing. Multilevel degener ative disc disease is noted and most pronounced at the C5-C7 vertebral levels. Cord: The spinal cord is unremarkable with regards to their signal intensity and morphology. Discs: Multilevel disc desiccation is present. C2-C3: No significant disc pathology. The spinal canal is patent. Bilateral facet and uncovertebral joint arthropathy are present with mild bilateral neural foraminal stenosis. C3-C4: No significant disc pathology. The spinal canal is patent. Bilateral facet and uncovertebral joint arthropathy are present with mild bilateral neural foraminal stenosis. C4-C5: No significant disc pathology. The spinal canal is patent. Bilateral facet and uncovertebral joint arthropathy are present with mild bilateral neural foraminal stenosis. C5-C6: A disc osteophyte complex is present with mild spinal canal stenosis. Bilateral facet and unc overtebral joint arthropathy are present with moderate to severe bilateral neural foraminal stenosis. C6-C7: A disc osteophyte complex is present with mild spinal canal stenosis. Bilateral facet and unc overtebral joint arthropathy are present with moderate to severe bilateral neural foraminal stenosis. C7-T1: No significant disc pathology. The spinal canal is patent. No neural foraminal stenosis. Other: None. IMPRESSION: 1. No evidence for disc herniation or significant spinal canal stenosis. 2. Moderate disc degeneration with associated osteoarthritic changes. Neural foraminal stenosis worse at C5-C6 and C6-C7 with at least moderate to severe bilateral. 3. Grade 1 anterolisthesis of C3 on C4.
== END | disposition home or self-care (01) ==
LOC: RADMRIMAIN 11:29
PROVIDERS: ATTEND Family Medicine
DX: M50.322 Other cervical disc degeneration at C5-C6 level (principal); M47.812 Spondylosis without myelopathy or radiculopathy, cervical region; M99.71 Connective tissue and disc stenosis of intervertebral foramina of cervical region; M43.12 Spondylolisthesis, cervical region
CPT/HCPCS: 72141

== ENCOUNTER → 2023-10-28 | Outpatient (CLI) | payer MEDICARE ==
--- NOTE | 2023-11-01 09:03 | CT ---
EXAMINATION TYPE: CT chest wo con CT DLP: 415.80 mGycm, Automated exposure control for dose reduction was used. DATE OF EXAM: 10/28/2023 9:59 AM COMPARISON: None. CLINICAL INDICATION:Female, 78 years old with history of J84.9 ILD; [facility], Interstitial lung disease, h x aortic valve replacement. High resolution TECHNIQUE: High-resolution CT chest protocol. Multiple axial images of the chest at selected interval s were obtained in prone and supine position. Supine inspiratory and expiratory phase. Please note th at due to interval acquisition images as defined by high-resolution CT protocol the entire lung paren chyma is not evaluated, therefore small nodular densities may not be visualized. Contrast used: mL of , None Oral contrast used: None FINDINGS: Exam is limited by lack of contrast. Particularly evaluation of vasculature, solid and hollow viscera , lymphadenopathy especially hilar. LUNGS: Scattered fine peripheral reticulation redemonstrated. Stable mild biapical reticular thickeni ng. Mild intralobular septal thickening again seen. Borderline mild bronchiectasis. No evidence of ho neycombing. No new groundglass opacities or consolidation. No suspicious pulmonary nodules or masses are identified. Lungs show diffuse mosaic attenuation pattern which becomes more conspicuous on expir atory phase imaging suggesting air trapping. Overall, there has been no significant interval change. LARGE AIRWAYS: Central airways are patent. No dynamic airway collapse on expiratory imaging. PLEURA: No pleural effusion or thickening. No pneumothorax. HEART AND PERICARDIUM: Heart is upper normal in size. Status post TAVR. There is no pericardial effus ion. Appears to be mitral annular calcifications. Possible mild coronary artery calcifications. MEDIASTINUM AND NAOMIE: No mediastinal or hilar lymphadenopathy or soft tissue mass evident. VESSELS: Aorta appears grossly stable. The ascending portion is 3.4 cm diameter, descending 2.1 cm. M ild/moderate atherosclerotic calcification mostly along the arch and distal descending/upper abdomina l segments. Pulmonary trunk is nonenlarged at 2.7 cm. Vessels otherwise not further assessed without contrast. CHEST WALL AND DIAPHRAGM: Unremarkable LOWER NECK: No significant findings. UPPER ABDOMEN: No significant abnormality. MUSCULOSKELETAL: Mild degenerative changes are present in the thoracic spine. No acute findings are seen. IMPRESSION: 1. Stable mosaic pattern of lung attenuation is nonspecific, can be associated with obstructive smal l airways disease, occlusive vascular disease, other vascular causes such as pulmonary edema or pulmo nary hemorrhage, or parenchymal disease including acute/subacute infection. 2. Mild peripheral reticulations and mild intralobular septal thickening again noted without evidenc e of honeycombing or fibrosis. 3. Borderline mild bronchiectasis. 4. No new groundglass opacities or consolidation.
== END | disposition home or self-care (01) ==
LOC: RADCTMAIN 09:28
PROVIDERS: ATTEND Internal Medicine Critical Care Medicine
DX: J84.9 Interstitial pulmonary disease, unspecified (principal); J98.4 Other disorders of lung
CPT/HCPCS: 71250

== ENCOUNTER → 2023-11-04 | Outpatient (CLI) | payer MEDICARE ==
[2023-11-04 15:15] LABS: Basophils # (A) 0.03 X 10*3/uL (0.00-0.10); Basophils % (A) 0.5 %; Eosinophils # (A) 0.09 X 10*3/uL (0.04-0.35); Eosinophils % (A) 1.6 %; HCT 41.5 % (37.2-46.3); HGB 13.6 g/dL (12.0-15.0); Lymphocytes # (A) 1.04 X 10*3/uL (0.90-5.00); Lymphocytes % (A) 18.6 %; MCH 30.4 pg (27.0-32.0); MCHC 32.8 g/dL (32.0-37.0); MCV 92.8 FL (80.0-97.0); Mean Platelet Volume 9.7 FL (9.5-12.2); Monocytes # (A) 0.68 X 10*3/uL (0.20-1.00); Monocytes % (A) 12.2 %; NRBC Per 100 WBC 0 X 10*3/uL (0.00-0.01); Neutrophils # (A) 3.73 X 10*3/uL (1.80-7.70); Neutrophils % (A) 66.7 %; Platelet Count 329 X 10*3/uL (140-440); RBC 4.47 X 10*6/uL (4.10-5.20); RDW 12.6 % (11.5-14.5); WBC 5.59 X 10*3/uL (4.50-10.00)
[2023-11-04 15:20] LABS: ALT 13 U/L (8-44); AST 21 U/L (13-35); Albumin 3.9 g/dL (3.8-4.9); Albumin/Globulin Ratio 1.15 Ratio (1.60-3.17); Alkaline Phosphatase 82 U/L (41-126); Blood Urea Nitrogen 14.7 mg/dL (9.0-27.0); Calcium 9.1 mg/dL (8.7-10.3); Carbon Dioxide 26.5 mmol/L (21.6-31.8); Chloride 98 mmol/L (96-109); Chol/HDL Ratio 3.64 Ratio; Globulin 3.4 g/dL (1.6-3.3); Glucose 94 mg/dL (70-110); LDL Cholesterol,Calculated 128.3 mg/dL (0.0-131.0); Potassium 4.1 mmol/L (3.5-5.5); Sodium 134 mmol/L (135-145); Total Bilirubin 0.4 mg/dL (0.3-1.2); Total Protein 7.3 g/dL (6.2-8.2); VLDL Calculation 18.22 mg/dL (5.00-40.00)
[2023-11-04 15:48] LABS: Rheumatoid Factor, Qnt 499 IU/mL (0-15)
[2023-11-04 16:43] LABS: Erythrocyte Sedimentation Rate 49 mm/Hr (0-30)
== END | disposition home or self-care (01) ==
LOC: LABWHC1 07:34
PROVIDERS: ATTEND Family Medicine
DX: M05.9 Rheumatoid arthritis with rheumatoid factor, unspecified (principal); E78.5 Hyperlipidemia, unspecified
CPT/HCPCS: 36415; 80053; 80061; 84443; 85025; 85652; 86140; 86431

== ENCOUNTER → 2023-12-02 | Outpatient (CLI) | payer MEDICARE ==
--- NOTE | 2023-12-02 12:23 | BD ---
EXAMINATION TYPE: Axial Bone Density DATE OF EXAM: 12/02/2023 CLINICAL HISTORY: 78 years old Female. ICD-10 CODE: Z78.0 ASYMPTOMATIC MENOPAUSAL STA Height: 5 ft 1 1/2 in Weight: 120 FRAX RISK QUESTIONS: Alcohol (3 or more units per day): no Family History (Parent hip fracture): yes Glucocorticoids (More than 3mos): yes (Ex: prednisone, prednisolone, methylprednisolone, dexamethasone, and hydrocortisone). History of Fracture in Adulthood: yes Secondary Osteoporosis: 1. Type 1 Diabetes: no 2. Hyperthyroidism: no 3. Menopause before 45: no 4. Malnutrition: no 5. Chronic liver disease: no Rheumatoid Arthritis: no Current Tobacco Use: no RISK FACTORS HISTORY OF: Surgery to Spine/Hip(right/left)/Wrist (right/left): no MEDICATIONS: Thyroid Medications: none Osteoporosis Medications: none EXAM MEASUREMENTS: Bone mineral densitometry was performed using the Free & Clear System. Bone mineral density as measured about the Lumbar spine is: ----- L1-L4(G/cm2): 1.277 T Score Values are as follows: ----- L1: -0.2 ----- L2: 0.4 ----- L3: 1.4 ----- L4: 1.2 ----- L1-L4: 0.8 Z Score Values are as follows: ----- L1: 1.9 ----- L2: 2.5 ----- L3: 3.5 ----- L4: 3.3 ----- L1-L4: 2.9 Bone mineral density has: decreased -7.6 % since study of: 2019 Bone mineral density about the R hip (g/cm2): 0.815 Bone mineral density about the L hip (g/cm2): 0.770 T Score values are as follows: -----R Neck: -1.6 -----L Neck: -1.9 -----R Total: -1.5 -----L Total: -1.6 Z Score values are as follows: -----R Neck: 0.6 -----L Neck: 0.3 -----R Total: 0.6 -----L Total: 0.4 Bone mineral density has: decreased -3.4 % since study of: 2019 FRAX%s: The graph provided illustrates a 18.6 % chance for a major osteoporotic fx and a 4.7 % chance for the hips probability for fx in 10 years time. IMPRESSION: Osteopenia (T Score between -2.5 and -1). There is slightly increased risk of fracture and the patient may be considered for treatment. Re-Screen 2-5 years. NOTE: T-SCORE=SD OF THE YOUNG ADULT MEAN.
--- NOTE | 2023-12-03 09:44 | MM ---
Reason for Exam: Screening (asymptomatic). Last mammogram was performed 1 year(s) and 2 month(s) ago. Patient History: Menarche at age 15. First Full-Term at age 25. Postmenopausal. Other cancer, age 33. Risk Values: Kylah 5 year model risk: 1.6%. NCI Lifetime model risk: 3.2%. Prior Study Comparison: 10/23/2021 Bilateral Diagnostic Mammogram, [facility]. 04/17/2022 Left MG 3D diag mammo w/cad LT, [facility]. 10/18/2022 Bilateral MG 3D screening mammo w/cad, [facility]. Tissue Density: The breast tissue is heterogeneously dense. This may lower the sensitivity of mammography. Findings: Analyzed By CAD. There is no suspicious group of microcalcifications or new suspicious mass in either breast. Benign calcifications. Chronic nodularity right breast. Stable benign-appearing lymph nodes. Overall Assessment: Benign, BI-RAD 2 Management: Screening Mammogram of both breasts in 1 year. . Patient should continue monthly self-breast exams. A clinical breast exam by your physician is recommended on an annual basis. This exam should not preclude additional follow-up of suspicious palpable abnormalities. Note on Kylah scores and lifetime risk: 1. A Kylah score greater than 3% is considered moderate risk. If this is the case, consider specialist referral to assess eligibility for a risk reducing agent. 2. If overall lifetime risk for the development of breast cancer is 20% or higher, the patient may qualify for future screening with alternating mammogram and breast MRI. Electronically signed and approved by: Griffin Chavarria M.D. Radiologis
== END | disposition home or self-care (01) ==
LOC: RADBDWWP 10:37
PROVIDERS: ATTEND Family Medicine
DX: Z12.31 Encounter for screening mammogram for malignant neoplasm of breast (principal); M85.89 Other specified disorders of bone density and structure, multiple sites; Z78.0 Asymptomatic menopausal state
CPT/HCPCS: 77063; 77067; 77080

== ENCOUNTER → 2024-07-29 | Outpatient (CLI) | payer MEDICARE ==
[2024-07-29 18:28] LABS: C Reactive Protein <0.30 mg/dL (0.00-0.80); Rheumatoid Factor, Qnt 250 IU/mL (0-15)
== END | disposition home or self-care (01) ==
LOC: LABWHC1 11:29
PROVIDERS: ATTEND Internal Medicine Critical Care Medicine
DX: R76.0 Raised antibody titer (principal)
CPT/HCPCS: 36415; 85652; 86140; 86200; 86431

== ENCOUNTER 2024-07-30 09:17 | Day surgery (SDC) | payer MEDICARE ==
--- NOTE | 2024-07-30 08:40 | HP ---
HISTORY AND PHYSICAL CHIEF COMPLAINT: Left otalgia/left tonsillar tag. HISTORY OF PRESENT ILLNESS: This patient is a 79-year-old female, who was recently seen in my office complaining of having pain in her left ear. At the time that the patient was seen in my office, clinical examination of the oropharynx revealed evidence of a residual tonsillar tag in the left tonsillar fossa. The patient had previously undergone evaluation for possible TMJ, and this was negative. It was therefore discussed with the fact that it is possible that the tonsillar tag is causing her ear pain. Therefore, it was recommended that she undergo excision of a left tonsillar tag under general anesthesia. PAST MEDICAL HISTORY: Reveals she has no known allergies to medications. MEDICATIONS: Her current medications include: 1. Losartan. 2. Pravastatin. 3. Zetia. 4. Baby aspirin. 5. Prilosec. REVIEW OF SYSTEMS: Reveals, CARDIOVASCULAR SYSTEM: Positive for . GASTROINTESTINAL SYSTEM: Positive for GERD (gastroesophageal reflux disorder). METABOLIC/ENDOCRINE SYSTEM: Positive for hypercholesterolemia. MUSCULOSKELETAL SYSTEM: Positive for osteoarthritis. The remainder of the review of systems is essentially unremarkable. PHYSICAL EXAMINATION: GENERAL: This patient is a 79-year-old female, who was alert and cooperative. HEENT: The patient is normocephalic. Tympanic membranes are normal. Middle ear space is free of any fluid or infection. Pupils equal, round, and reactive to light and accommodation. Extraocular movements are within normal limits. Intranasal examination reveals moderate septal deviation with compensatory hypertrophy of the inferior turbinates. Examination of the oropharynx reveals the patient has a tonsillar tag located centrally in the left tonsillar fossa. The remainder of the head and neck exam was unremarkable. CHEST/CARDIOVASCULAR: Both lung villalobos are clear to percussion and auscultation. The patient is in regular sinus rhythm. S1, S2 are present without evidence of any S3 or S4s. Peripheral pulses are bilaterally symmetrical. ABDOMEN: There is no evidence of any masses, megaly, or tenderness. The abdomen is soft. SKIN: Unremarkable. MUSCULOSKELETAL: Within normal limits. NEUROLOGICAL: Within normal limits. PELVIC/RECTAL: This should be printed. The pelvic/rectal exam is deferred at this time because the patient has this done on a regular basis at her family physician's office. The remainder of physical exam is unremarkable. IMPRESSION: Left tonsillar tag. PLAN: The patient is scheduled undergo excision of left tonsillar tag under general anesthesia in the a.m. Attention, RNs in the pre-surgical area. I have ordered for this patient to receive 1 g of Rocephin IV, to be given once an intravenous line has been established. If the Pharmacy Department sends a different pre-surgical prophylactic antibiotic to the pre- surgical area for this patient, that order should be cancelled, and the medication should be returned to the Pharmacy Department. Please make sure that the patient's account is credited appropriately. I have also ordered for this patient to receive 1000 mg of Ofirmev IV to be given once an IV has been established. I have discussed the risks, benefits and alternative therapies for the above-mentioned procedure and for both sedation/analgesia as well as necessary blood product administration, if indicated, as they pertain to this patient. The patient has indicated her understanding and acceptance of the risks and procedures discussed. MMALFREDAL / NYAN: [id number] /
--- NOTE | 2024-07-30 08:45 | HP ---
HISTORY AND PHYSICAL ADDENDUM: CHIEF COMPLAINT: Left otalgia/left tonsillar tag. 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 MMODL / IJN: [id number] /
[~2024-07-30 09:17] MED LIST changes: -LACTATED RINGERS 1,000 ML IV SCH; +Pre Op ABX Message 1 EACH MISC MISCELLANE ONE
[2024-07-30] MEDS ORDERED: HYDROmorphone 0.5 MG/0.5 ML SYRINGE IVP PRN (09:44)
[2024-07-30] MEDS ORDERED: MIDAZOLAM 2 MG/2 ML VIAL IV PRN (09:44)
[2024-07-30] MEDS: ACETAMINOPHEN IV (For NPO) 1,000 MG in EMPTY BAG 1 BAG IVPB ONE (10:05)
[2024-07-30] MEDS: DEXAMETHASONE SOD PHOSPHATE 4 MG/ML 1 ML VIAL IV ONE (10:05)
[2024-07-30] MEDS: ONDANSETRON 4 MG/2 ML VIAL IVP ONE (10:05)
[2024-07-30] MEDS: LACTATED RINGERS 1,000 ML IV SCH (10:05)
[2024-07-30] MEDS: IV FLUID CONTINUATION 1,000 ML IV ONE (10:09)
[2024-07-30] MEDS ORDERED: MIDAZOLAM 2 MG/2 ML VIAL ONE (11:06)
[2024-07-30] MEDS ORDERED: ePHEDrine 50 MG/ML 1 ML VIAL ONE (11:06)
[2024-07-30] MEDS ORDERED: PROPOFOL 10 MG/ML 20 ML VIAL IV ONE (11:06)
[2024-07-30] MEDS ORDERED: LIDOCAINE 1% INJ 10MG/ML (20 ML MDV) ONE (11:06)
[2024-07-30] MEDS ORDERED: SUCCINYLCHOLINE CHLORIDE 200 MG/10 ML VIAL IV ONE (11:06)
[2024-07-30] MEDS ORDERED: PHENYLEPHRINE 10 MG/ML VIAL ONE (11:06)
[2024-07-30] MEDS ORDERED: fentaNYL (PF) 50 MCG/ML 2 ML AMP ONE (11:06)
[2024-07-30] MEDS: BUPIVACAINE (PF) 0.5% 30 ML VIAL MISCELLANE ONE ×2 (11:32)
[2024-07-30 12:13] VITALS: TEMP 97.2
[2024-07-30 12:58] VITALS: BP 151/83; PULSE 68; RESP 17
--- NOTE | 2024-08-02 22:04 | OP ---
OPERATIVE REPORT DATE OF SERVICE : PREOPERATIVE DIAGNOSIS: Left tonsillar tag. POSTOPERATIVE DIAGNOSIS: Left tonsillar tag. ANESTHESIA: General. PROCEDURE: Excision of left tonsillar tag. COMPLICATIONS: None. ESTIMATED BLOOD LOSS: Less than 5 cc. DESCRIPTION OF PROCEDURE: The patient was placed on the operating table in supine position and after uneventful induction with an endotracheal intubation, satisfactory general anesthesia was obtained. Next, the patient was draped in usual and customary fashion. Following this, a #3 Fernanda Vladimir mouth gag was introduced into the oropharynx and expanded and subsequently suspended on a Song stand. Next, inspection of the left tonsillar fossa revealed evidence of a residual tonsillar tag. Therefore, using a pair of tonsillar forceps, the tonsil tag was grasped and pulled medially. It was subsequently dissected free from the underlying soft tissue using a combination of a sickle knife and electrocautery. The tonsillar tag was excised completely and the specimen was sent to Pathology for permanent sectioning. Hemostasis was obtained using suction cautery. At this point, the procedure was terminated. Estimated blood loss was less than 5 cc. The patient tolerated the procedure well and was returned to the recovery room in satisfactory condition. MMODL / IJN: [id number] /
== END 2024-07-30 13:06 | disposition home or self-care (01) ==
LOC: OR 09:17
PROVIDERS: ATTEND Otolaryngology
DX: J35.8 Other chronic diseases of tonsils and adenoids
CPT/HCPCS: 88305

== ENCOUNTER → 2024-11-03 | Outpatient (CLI) | payer MEDICARE ==
--- NOTE | 2024-11-03 14:33 | CT ---
EXAMINATION TYPE: CT iac w con DATE OF EXAM: 11/03/2024 COMPARISON: NONE HISTORY: Chronic ear pain, especially LT side CT DLP: 150 mGycm. Automated Exposure Control for Dose Reduction was Utilized. TECHNIQUE: CT scan of internal auditory canal is performed without contrast, thin cut axial images ar e obtained, coronal reformatted images are also reviewed. FINDINGS: The external auditory canals are patent bilaterally. Mastoid air cells show no evidence of abnormal opacification bilaterally. The middle ear ossicles are symmetric and unremarkable. There is no evidence of suspicious surroundi ng soft tissue density to suggest cholesteatoma. The scutum is preserved bilaterally. The cochlea and the semicircular canals are symmetric and unremarkable. Satisfactory superior bony o vercoverage is noted bilaterally. Vestibular aqueduct and internal carotid canal appear unremarkable . Temporomandibular joints are maintained bilaterally. Visualized paranasal sinuses show [id number] ate mucosal thickening involving left maxillary sinus otherwise are clear. Visualized portion brain p arenchyma is felt within normal limits.. Globes are intact bilaterally. IMPRESSION: No significant abnormality seen to account for patient's symptoms. [facility], , 11/03/2024 2:31 PM
== END | disposition home or self-care (01) ==
LOC: RADCTMAIN 09:04
PROVIDERS: ATTEND Otolaryngology
DX: H92.02 Otalgia, left ear (principal)
CPT/HCPCS: 70481

== ENCOUNTER → 2024-11-03 | Outpatient (CLI) | payer MEDICARE ==
[2024-11-03 10:16] LABS: African American GFR (CKD) >90 (>60 ml/min/1.73 sqM); Blood Urea Nitrogen 18 mg/dL (7-17); Non-African American GFR(CKD) 83 (>60 ml/min/1.73 sqM)
--- NOTE | 2024-11-03 14:21 | CT ---
EXAMINATION TYPE: CT chest w con DATE OF EXAM: 11/03/2024 COMPARISON: Chest CT October 28, 2023 and older studies HISTORY: Hx interstitial lung disease CT DLP: 129.20 mGycm. Automated Exposure Control for Dose Reduction was Utilized. TECHNIQUE: CT scan of the thorax is performed following with IV Contrast, patient injected with 100 mL of Isovue 300. FINDINGS: LUNGS: Mild biapical pleural/parenchymal scarring is redemonstrated. There is some scattered mild sheba ear scarring particularly anteriorly in both lungs. There is some mosaic attenuation in the bilateral lower lobes redemonstrated. No pleural effusion or pneumothorax is seen. Some patchy groundglass [place] in the anterior-inferior right upper lobe is present. No new focal consolidation. MEDIASTINUM: There are no greater than 1 cm hilar or mediastinal lymph nodes. No cardiomegaly or pe ricardial effusion is seen. Surgical change of level of the aortic valve is redemonstrated. OTHER: No additional significant abnormality is seen. IMPRESSION: Persistent mosaic attenuation of the lungs most prominent inferiorly. Persistent mild sca ttered parenchymal linear scarring. [facility], , 11/03/2024 2:19 PM
== END | disposition home or self-care (01) ==
LOC: RADCTMAIN 08:58
PROVIDERS: ATTEND Internal Medicine Critical Care Medicine
DX: J84.9 Interstitial pulmonary disease, unspecified (principal); J98.4 Other disorders of lung
CPT/HCPCS: 82565; 84520; 71260; 36415; Q9967

== ENCOUNTER → 2024-12-21 | Outpatient (CLI) | payer MEDICARE ==
[2024-12-21 15:21] LABS: Chol/HDL Ratio 3.02 Ratio
[2024-12-21 15:22] LABS: ALT 22 U/L (8-44); AST 29 U/L (13-35); Albumin 4.3 g/dL (3.8-4.9); Albumin/Globulin Ratio 1.48 Ratio (1.60-3.17); Alkaline Phosphatase 71 U/L (41-126); Blood Urea Nitrogen 15.4 mg/dL (9.0-27.0); Calcium 9.4 mg/dL (8.7-10.3); Carbon Dioxide 27.9 mmol/L (21.6-31.8); Chloride 99 mmol/L (96-109); Globulin 2.9 g/dL (1.6-3.3); Glucose 95 mg/dL (70-110); LDL Cholesterol,Calculated 122.7 mg/dL (0.0-131.0); Potassium 4.2 mmol/L (3.5-5.5); Sodium 137 mmol/L (135-145); Total Bilirubin 0.4 mg/dL (0.3-1.2); Total Protein 7.2 g/dL (6.2-8.2)
[2024-12-21 15:44] LABS: Rheumatoid Factor, Qnt 325 IU/mL (0-15)
[2024-12-21 15:49] LABS: Basophils # (A) 0.04 X 10*3/uL (0.00-0.10); Basophils % (A) 0.7 %; C Reactive Protein <0.30 mg/dL (0.00-0.80); Eosinophils # (A) 0.07 X 10*3/uL (0.04-0.35); Eosinophils % (A) 1.3 %; HCT 42.4 % (37.2-46.3); HGB 13.8 g/dL (12.0-15.0); Lymphocytes # (A) 1.21 X 10*3/uL (0.90-5.00); Lymphocytes % (A) 21.7 %; MCH 30.1 pg (27.0-32.0); MCHC 32.5 g/dL (32.0-37.0); MCV 92.6 FL (80.0-97.0); Mean Platelet Volume 9.9 FL (9.5-12.2); Monocytes # (A) 0.46 X 10*3/uL (0.20-1.00); Monocytes % (A) 8.3 %; NRBC Per 100 WBC 0 X 10*3/uL (0.00-0.01); Neutrophils # (A) 3.76 X 10*3/uL (1.80-7.70); Neutrophils % (A) 67.5 %; Platelet Count 279 X 10*3/uL (140-440); RBC 4.58 X 10*6/uL (4.10-5.20); RDW 12.8 % (11.5-14.5); WBC 5.57 X 10*3/uL (4.50-10.00)
[2024-12-21 16:04] LABS: Erythrocyte Sedimentation Rate 14 mm/Hr (0-30)
== END | disposition home or self-care (01) ==
LOC: LABWHC1 09:22
PROVIDERS: ATTEND Family Medicine
DX: M05.9 Rheumatoid arthritis with rheumatoid factor, unspecified (principal); E78.5 Hyperlipidemia, unspecified
CPT/HCPCS: 36415; 80053; 80061; 84443; 85025; 85652; 86140; 86431

== ENCOUNTER → 2025-02-04 | Outpatient (CLI) | payer MEDICARE ==
--- NOTE | 2025-02-04 17:27 | MM ---
Reason for Exam: Screening (asymptomatic). Last mammogram was performed 1 year(s) and 2 month(s) ago. Patient History: Menarche at age 15. First Full-Term at age 25. Postmenopausal. Other cancer, age 33. Risk Values: Kylah 5 year model risk: 1.6%. NCI Lifetime model risk: 3.0%. Prior Study Comparison: 04/17/2022 Left MG 3D diag mammo w/cad , [facility]. 10/18/2022 Bilateral MG 3D screening mammo w/cad, [facility]. 12/02/2023 Bilateral MG 3D screening mammo w/cad, [facility]. Tissue Density: There are scattered areas of fibroglandular density. Findings: Analyzed By CAD. There is no suspicious group of microcalcifications or new suspicious mass in either breast. Overall Assessment: Negative, BI-RAD 1 Management: Screening Mammogram of both breasts in 1 year. Patient should continue monthly self-breast exams. A clinical breast exam by your physician is recommended on an annual basis. This exam should not preclude additional follow-up of suspicious palpable abnormalities. Note on Kylah scores and lifetime risk: 1. A Kylah score greater than 3% is considered moderate risk. If this is the case, consider specialist referral to assess eligibility for a risk reducing agent. 2. If overall lifetime risk for the development of breast cancer is 20% or higher, the patient may qualify for future screening with alternating mammogram and breast MRI. [facility], , 02/04/2025 5:24 PM. Electronically signed and approved by: Faraz Quiñonez M.D. Radiologist
== END | disposition home or self-care (01) ==
LOC: RADMAMWWP 13:34
PROVIDERS: ATTEND Family Medicine
DX: Z12.31 Encounter for screening mammogram for malignant neoplasm of breast (principal); R92.323 Mammographic fibroglandular density, bilateral breasts; Z78.0 Asymptomatic menopausal state
CPT/HCPCS: 77063; 77067

== ENCOUNTER → 2025-05-06 | Outpatient (CLI) | payer MEDICARE ==
--- NOTE | 2025-05-06 11:46 | CT ---
EXAMINATION TYPE: CT brain wo con DATE OF EXAM: 05/06/2025 11:10 AM COMPARISON: 11/03/2024. CLINICAL INDICATION: Female, 79 years old with history of R53.1 weakness, DIZZINESS, WEAKNESS TECHNIQUE: Brain: Axial CT images of the brain were obtained with coronal and sagittal reformats created and rev iewed. Contrast used: None. Oral contrast used: None. CT DLP: 1126.50 mGycm, Automated exposure control for dose reduction was used. FINDINGS: Brain: Extra-axial spaces: No abnormal extra-axial fluid collections. Ventricular system: Within normal limits Cerebral parenchyma: No acute intraparenchymal hemorrhage or mass effect. The fitzgerald-white junction is well differentiated. Cerebellum: Unremarkable. Mass effect: No evidence of midline shift. Intracranial vasculature: Atherosclerotic calcifications of the intracranial vessels. Soft tissues: Normal. Calvarium/osseous structures: No depressed skull fracture. Paranasal sinuses and mastoid air cells: Mild scattered paranasal sinus disease. Visualized orbits: Orbital contents are intact. IMPRESSION: 1. No acute intracranial process. 2. Nonspecific white matter changes, likely secondary to chronic small vessel ischemic disease. [facility], , 05/06/2025 11:44 AM
== END | disposition home or self-care (01) ==
LOC: RADCTMAIN 10:42
PROVIDERS: ATTEND Family Medicine
DX: R90.82 White matter disease, unspecified (principal); R53.1 Weakness
CPT/HCPCS: 70450